=== PATIENT | female | born 1930 | race Caucasian/White ===

== ENCOUNTER 2016-10-25 06:17 | Emergency (ER) | payer MEDICARE, OTHER ==
[2016-10-25 07:02] LABS: Hematocrit 39 % (35-47); Hemoglobin 13.2 g/dl (12.0-16.0); Mean Corpuscular HGB Conc 34 g/dl (31-36); Mean Corpuscular Hemoglobin 33 pg (27-31); Mean Corpuscular Volume 98 fL (80-97); Mean Platelet Volume 10 um3 (7.4-10.4); Red Blood Count 3.97 10^6/ul (4.0-5.4); Red Cell Distribution Width 14 % (10.5-15); White Blood Count 4.9 10^3/ul (3.5-10.8)
[2016-10-25 07:08] LABS: Albumin 3.6 g/dL (3.2-5.2); BUN/Creatinine Ratio 27.6 (8-20); C Reactive Protein 1.94 mg/L (< 5.00); Calcium 9.1 mg/dL (8.6-10.3); EGFR African American 79.2 (>60); EGFR Non-African American 61.6 (>60); Globulin 2.8 g/dL (2-4); Potassium 4.2 mmol/L (3.5-5.0); Total Bilirubin 0.5 mg/dL (0.2-1.0); Total Protein 6.4 g/dL (6.4-8.9)
[2016-10-25 07:26] LABS: Budding Yeast Present (Absent); Urine Bacteria Absent (Absent); Urine Bilirubin Negative (Negative); Urine Glucose Negative (Negative); Urine Nitrite Negative (Negative)
[2016-10-25] MEDS ORDERED: NS 0.9% 1000 ML* 1,000 ML IV ONE (07:53)
[2016-10-25 08:27] VITALS: BP 154/76
--- NOTE | 2016-10-25 18:29 | ED ---
Ming Wright Adam, scribed for Tylor Phillips MD on 10/25/16 at 0804 . Complex/Multi-Sys Presentation - HPI Summary HPI Summary: Pt is an 86 year old female being treated for UTI who suddenly developed abdominal pain this morning. 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 She denies any pain at this time. She has not had a fever but had profound diaphoresis associated with the pain this morning. The daughter also states that the pt was hallucinating this morning, which is very unusual. Upon examination the pt is confused but the daughter states that she is approximately at her baseline. The pt is on her 5th day of Keflex and she had a Olmedo catheter put in this morning because she has been retaining fluid. She is being followed by Dr. Connolly. - History Of Current Complaint Chief Complaint: EDUrogenitalProblems Time Seen by Provider: 10/25/16 07:52 Hx Obtained From: Patient Onset/Duration: Sudden Onset, Lasting Hours, Resolved Timing: Constant Severity Currently: None Severity Initially: Moderate Location: Pain At: - Abdomen Aggravating Factor(s): Nothing Alleviating Factor(s): Spontaneous resolution Associated Signs And Symptoms: Positive: Confusion, Diaphoresis, Other - Hallucinations, urinary retention - Allergies/Home Medications Allergies/Adverse Reactions: Allergies Allergy/AdvReac Type Severity Reaction Status Date / Time Amlodipine [From Norvasc] Allergy Unknown Unknown Verified 10/25/16 06:53 Reaction Details Atorvastatin [From Lipitor] Allergy Unknown Unknown Verified 10/25/16 06:53 Reaction Details Azithromycin [From Zithromax] Allergy Unknown Unknown Verified 10/25/16 06:53 Reaction Details Benazepril [From Lotensin] Allergy Unknown Unknown Verified 10/25/16 06:53 Reaction Details Calcium Channel Blockers Allergy Unknown Unknown Verified 10/25/16 06:53 Reaction Details Cephalexin [From Keflex] Allergy Unknown Unknown Verified 10/25/16 06:53 Reaction Details Erythromycin Allergy Unknown Unknown Verified 10/25/16 06:53 Reaction Details Hydrochlorothiazide Allergy Unknown Unknown Verified 10/25/16 06:53 Reaction Details Metoprolol [From Toprol XL] Allergy Unknown Unknown Verified 10/25/16 06:53 Reaction Details Nadolol [From Corgard] Allergy Unknown Unknown Verified 10/25/16 06:53 Reaction Details Nickel Allergy Unknown Unknown Verified 10/25/16 06:53 Reaction Details Penicillins [PCN] Allergy Unknown Unknown Verified 10/25/16 06:53 Reaction Details Ramipril [From Altace] Allergy Unknown Unknown Verified 10/25/16 06:53 Reaction Details Valsartan [From Diovan] Allergy Unknown Unknown Verified 10/25/16 06:53 Reaction Details apricots Allergy Unknown Unknown Uncoded 02/16/16 14:22 Reaction Details leeks Allergy Unknown Unknown Uncoded 02/16/16 14:22 Reaction Details primrose oil Allergy Unknown Unknown Uncoded 02/16/16 14:22 Reaction Details walnuts Allergy Unknown Unknown Uncoded 02/16/16 14:22 Reaction Details PMH/Surg Hx/FS Hx/Imm Hx Endocrine/Hematology History: Reports: Hx Anticoagulant Therapy - coumadin, Hx Diabetes, Hx Thyroid Disease - hypothyroid Cardiovascular History: Reports: Hx Hypertension, Other Cardiovascular Problems/ Disorders - ATRIAL FIBRILATION Denies: Hx Congestive Heart Failure, Hx Pacemaker/ICD Respiratory History: Denies: Hx Asthma, Hx Chronic Obstructive Pulmonary Disease (COPD) History: Reports: Hx Kidney Stones, Other Problems/Disorders - FREQUENT UTI'S Denies: Hx Renal Disease Musculoskeletal History: Reports: Hx Back Problems - BACK PAIN, Other Musculoskeletal History - CONTRACTURED LEFT ARM AND LEFT LEG WEAKNESS Denies: Hx Arthritis, Hx Osteoporosis Sensory History: Reports: Hx Cataracts - BILATERAL, Hx Contacts or Glasses Denies: Hx Hearing Aid Opthamlomology History: Reports: Hx Cataracts - BILATERAL, Hx Contacts or Glasses Neurological History: Reports: Hx Dementia, Hx Seizures, Hx Transient Ischemic Attacks (TIA) - 6 years ago. 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 Denies: Hx Developmental Delay Psychiatric History: Denies: Hx Panic Disorder, Hx Substance Abuse - Surgical History Surgery Procedure, Year, and Place: CATARACTS; HYSTERECTOMY; VARICOSE VEINS; CARDIAC ABLATION Infectious Disease History: No Infectious Disease History: Denies: Hx Clostridium Difficile, Hx Hepatitis, Hx Human Immunodeficiency Virus (HIV), Hx Shingles, Hx Tuberculosis, Traveled Outside the [place] in Last 30 Days - Family History Known Family History: Positive: Unknown - Pt has dementia - Social History Occupation: Retired Lives: With Family - Daughter Alcohol Use: None Hx Substance Use: No Substance Use Type: Reports: None Hx Tobacco Use: No Smoking Status (MU): Never Smoked Tobacco Review of Systems Positive: Skin Diaphoresis. Negative: Fever, Chills Negative: Erythema Negative: Sore Throat Negative: Chest Pain Negative: Shortness Of Breath, Cough Positive: Abdominal Pain. Negative: Vomiting, Nausea Positive: other - Retaining urine in bladder Negative: Myalgia, Edema Negative: Rash Neurological: Other - Hallucinations, confusion All Other Systems Reviewed And Are Negative: Yes Physical Exam - Summary Physical Exam Summary: Constitutional: Well-developed, Well-nourished, Alert. (-) Distressed Skin: Warm, Dry HENT: Normocephalic; Atraumatic Eyes: Conjunctiva normal Neck: Musculoskeletal ROM normal neck. (-) JVD, (-) Stridor, (-) Tracheal deviation Cardio: Rhythm regular, rate normal, Heart sounds normal; Intact distal pulses; The pedal pulses are 2+ and symmetric. Radial pulses are 2+ and symmetric. (-) Murmur Pulmonary/Chest wall: Effort normal. (-) Respiratory distress, (-) Wheezes, (-) Rales Abd: Soft, (-) Tenderness, (-) Distension, (-) Guarding, (-) Rebound Musculoskeletal: (-) Edema Lymph: (-) Cervical adenopathy Neuro: Alert, Oriented x3 Psych: Mood and affect Normal Triage Information Reviewed: Yes Vital Signs On Initial Exam: Initial Vitals BP 158/67 10/25/16 06:30 Vital Signs Reviewed: Yes - [place] Coma Scale Coma Scale Total: 14 Diagnostics - Vital Signs Vital Signs Temp Pulse Resp BP Pulse Ox 10/25/16 07:34 80 159/62 95 10/25/16 07:30 81 143/64 95 10/25/16 07:00 71 140/61 96 10/25/16 06:50 99.2 F 77 18 158/67 95 10/25/16 06:49 94 10/25/16 06:30 158/67 - Laboratory Lab Results: Lab Results 10/25/16 10/25/16 10/25/16 Range/Units 06:33 06:33 06:33 WBC 4.9 (3.5-10.8) 10^3/ul RBC 3.97 L (4.0-5.4) 10^6/ul Hgb 13.2 (12.0-16.0) g/dl Hct 39 (35-47) % MCV 98 H (80-97) fL MCH 33 H (27-31) pg MCHC 34 (31-36) g/dl RDW 14 (10.5-15) % Plt Count 174 (150-450) 10^3/ul MPV 10 (7.4-10.4) um3 Neut % (Auto) 47.4 (38-83) % Lymph % (Auto) 38.2 (25-47) % [place] % (Auto) 6.0 (1-9) % Eos % (Auto) 6.5 H (0-6) % Baso % (Auto) 1.9 (0-2) % Absolute Neuts (auto) 2.3 (1.5-7.7) 10^3/ul Absolute Lymphs (auto) 1.9 (1.0-4.8) 10^3/ul Absolute Monos (auto) 0.3 (0-0.8) 10^3/ul Absolute Eos (auto) 0.3 (0-0.6) 10^3/ul Absolute Basos (auto) 0.1 (0-0.2) 10^3/ul Absolute Nucleated RBC 0 10^3/ul Nucleated RBC % 0 INR (Anticoag Therapy) 1.06 (0.89-1.11) APTT 41.6 H (26.0-36.3) seconds Sodium 138 (133-145) mmol/L Potassium 4.2 (3.5-5.0) mmol/L Chloride 103 (101-111) mmol/L Carbon Dioxide 28 (22-32) mmol/L Anion Gap 7 (2-11) mmol/L BUN 24 (6-24) mg/dL Creatinine 0.87 (0.51-0.95) mg/dL Est GFR ( Amer) 79.2 (>60) Est GFR (Non-Af Amer) 61.6 (>60) BUN/Creatinine Ratio 27.6 H (8-20) Glucose 125 H (70-100) mg/dL Lactic Acid (0.5-2.0) mmol/L Calcium 9.1 (8.6-10.3) mg/dL Total Bilirubin 0.50 (0.2-1.0) mg/dL AST 9 L (13-39) U/L ALT 7 (7-52) U/L Alkaline Phosphatase 65 (34-104) U/L C-Reactive Protein 1.94 (< 5.00) mg/L Total Protein 6.4 (6.4-8.9) g/dL Albumin 3.6 (3.2-5.2) g/dL Globulin 2.8 (2-4) g/dL Albumin/Globulin Ratio 1.3 (1-3) Urine Color Urine Appearance Urine pH (5-9) Ur Specific [place] (1.010-1.030) Urine Protein (Negative) Urine Ketones (Negative) Urine Blood (Negative) Urine Nitrate (Negative) Urine Bilirubin (Negative) Urine Urobilinogen (Negative) Ur Leukocyte Esterase (Negative) Urine WBC (Auto) (Absent) Urine RBC (Auto) (Absent) Urine Bacteria (Absent) Urine Yeast (Absent) Urine Glucose (Negative) 10/25/16 10/25/16 Range/Units 06:33 06:45 WBC (3.5-10.8) 10^3/ul RBC (4.0-5.4) 10^6/ul Hgb (12.0-16.0) g/dl Hct (35-47) % MCV (80-97) fL MCH (27-31) pg MCHC (31-36) g/dl RDW (10.5-15) % Plt Count (150-450) 10^3/ul MPV (7.4-10.4) um3 Neut % (Auto) (38-83) % Lymph % (Auto) (25-47) % [place] % (Auto) (1-9) % Eos % (Auto) (0-6) % Baso % (Auto) (0-2) % Absolute Neuts (auto) (1.5-7.7) 10^3/ul Absolute Lymphs (auto) (1.0-4.8) 10^3/ul Absolute Monos (auto) (0-0.8) 10^3/ul Absolute Eos (auto) (0-0.6) 10^3/ul Absolute Basos (auto) (0-0.2) 10^3/ul Absolute Nucleated RBC 10^3/ul Nucleated RBC % INR (Anticoag Therapy) (0.89-1.11) APTT (26.0-36.3) seconds Sodium (133-145) mmol/L Potassium (3.5-5.0) mmol/L Chloride (101-111) mmol/L Carbon Dioxide (22-32) mmol/L Anion Gap (2-11) mmol/L BUN (6-24) mg/dL Creatinine (0.51-0.95) mg/dL Est GFR ( Amer) (>60) Est GFR (Non-Af Amer) (>60) BUN/Creatinine Ratio (8-20) Glucose (70-100) mg/dL Lactic Acid 0.9 (0.5-2.0) mmol/L Calcium (8.6-10.3) mg/dL Total Bilirubin (0.2-1.0) mg/dL AST (13-39) U/L ALT (7-52) U/L Alkaline Phosphatase (34-104) U/L C-Reactive Protein (< 5.00) mg/L Total Protein (6.4-8.9) g/dL Albumin (3.2-5.2) g/dL Globulin (2-4) g/dL Albumin/Globulin Ratio (1-3) Urine Color Yellow Urine Appearance Clear Urine pH 6.0 (5-9) Ur Specific [place] 1.013 (1.010-1.030) Urine Protein Negative (Negative) Urine Ketones Negative (Negative) Urine Blood 1+ H (Negative) Urine Nitrate Negative (Negative) Urine Bilirubin Negative (Negative) Urine Urobilinogen Negative (Negative) Ur Leukocyte Esterase 2+ H (Negative) Urine WBC (Auto) 3+(>20/hpf) H (Absent) Urine RBC (Auto) 1+(3-5/hpf) H (Absent) Urine Bacteria Absent (Absent) Urine Yeast Present H (Absent) Urine Glucose Negative (Negative) Result Diagrams: 10/25/16 06:33 10/25/16 06:33 Lab Statement: Any lab studies that have been ordered have been reviewed, and results considered in the medical decision making process. Complex Multi-Symp Course/Dx - Diagnoses Provider Diagnoses: UTI (urinary tract infection), Urinary retention Discharge - Discharge Plan Condition: Stable Disposition: HOME Prescriptions: Cephalexin CAP* [Keflex CAP*] 500 mg PO QID #40 cap Patient Education Materials: Urinary Tract Infection in Women (ED), Acute Urinary Retention in Women (ED) Referrals: Heber Connolly MD [Medical Doctor] - Additional Instructions: Follow up with Dr. Connolly (Urology). Return to the ED in the event of any fevers or worsening symptoms. The documentation as recorded by the Ming ring Adam accurately reflects the service I personally performed and the decisions made by , Tylor Phillips MD.
== END 2016-10-25 08:57 | disposition home or self-care (01) ==
LOC: ED 06:17
DX: N39.0 Urinary tract infection, site not specified (principal); R33.9 Retention of urine, unspecified
CPT/HCPCS: 36415; 80053; 81003; 81015; 83605; 85025; 85610; 85730; 86140; 87086; 99284

== ENCOUNTER 2017-02-17 10:23 | Observation (INO) | payer MEDICARE, OTHER ==
--- NOTE | 2017-02-17 11:43 | RAD ---
Indication: Chest pain. History of CVA. New neurologic deficits today with interval. Comparison: June 07, 2016 CT abdomen. February 16, 2016 chest radiograph. Technique: Upright AP 1125 hours Report: Cardiomegaly. Unremarkable central pulmonary vasculature. Mild prominence and rarefaction of the interstitial markings. Mild linear atelectasis versus pleural parenchymal scarring at the medial LEFT lower lung zone. No alveolar consolidation concerning for pneumonia, suspicious focal pulmonary lesion, pleural effusion, pneumothorax. IMPRESSION: Cardiomegaly which appears increased over the 2016 exam. No compelling evidence for pulmonary edema or other acute intrathoracic process.
[2017-02-17 12:05] LABS: Hematocrit 44 % (35-47); Hemoglobin 14.6 g/dl (12.0-16.0); Mean Corpuscular HGB Conc 33 g/dl (31-36); Mean Corpuscular Hemoglobin 33 pg (27-31); Mean Corpuscular Volume 99 fL (80-97); Mean Platelet Volume 10 um3 (7.4-10.4); Red Blood Count 4.45 10^6/ul (4.0-5.4); Red Cell Distribution Width 15 % (10.5-15); White Blood Count 7.2 10^3/ul (3.5-10.8)
--- NOTE | 2017-02-17 12:10 | RAD ---
Indication: Altered mental status. New RIGHT side weakness and facial droop. Previous CVA. Comparison: June 07, 2016 CT. Technique: Noncontrast and contrast enhanced CT vertex of skull through foramen magnum. Report: Extensive RIGHT middle cerebral artery distribution encephalomalacia without change. Moderate prominence of the cerebral sulci and cerebellar fissures. Decreased density in the periventricular and subcortical white matter while non-specific is most likely due to chronic microangiopathy. No new region of foster matter white matter obscuration, intra or extra-axial hemorrhage, or mass effect. Chronic calcification of the basal ganglia. Unremarkable ventricles and basal cisterns. No suspicious calvarial or skull base lesions evident. Clear visualized paranasal sinuses and mastoid air spaces. IMPRESSION: 1. Chronic severe encephalomalacia reflecting previous RIGHT middle cerebral artery distribution infarct. 2. Atrophy and stigmata of chronic small vessel ischemic change. 3. No acute intracranial process evident.
[2017-02-17 12:21] LABS: ALT 14 U/L (7-52); Albumin 3.9 g/dL (3.2-5.2); Alkaline Phosphatase 71 U/L (34-104); BUN/Creatinine Ratio 27.9 (8-20); Blood Urea Nitrogen 19 mg/dL (6-24); CO2 Carbon Dioxide 24 mmol/L (22-32); Calcium 9.2 mg/dL (8.6-10.3); Chloride 100 mmol/L (101-111); EGFR Non-African American 81.7 (>60); Glucose 177 mg/dL (70-100); Sodium 130 mmol/L (133-145); Total Protein 6.9 g/dL (6.4-8.9)
[2017-02-17 12:24] LABS: Troponin I 0.02 ng/mL (<0.04)
[2017-02-17 12:37] LABS: Urine Bacteria 1+ (Absent); Urine Bilirubin Negative (Negative); Urine Glucose 1+(50 mg/dL) (Negative); Urine Nitrite Positive (Negative)
[2017-02-17 12:44] LABS: Anion Gap 6 mmol/L (2-11)
[2017-02-17] MEDS ORDERED: Dextrose 50% Syringe 50 ML* 25 GM/50 ML SYRINGE IV PUSH PRN (13:07)
[2017-02-17 15:05] LABS: TSH (Thyroid Stimulating Horm) 0.54 mcIU/mL (0.34-5.60)
[2017-02-17] MEDS: NS 0.9% 1000 ML* 1,000 ML IV SCH (18:05)
--- NOTE | 2017-02-17 18:58 | ED ---
Lydia Wright Edward, scribed for Yovany Mcbride MD on 02/17/17 at 1044 . Neurological HPI - HPI Summary HPI Summary: 87 y/o female presents to the ED c/o diaphoresis, R sided weakness, bilateral facial drooping (R side is new, L side chronic), and slurred speech at 05:00 this morning. Last seen normal was before the pt went to bed last night at 19: 30. Pt woke up with these sx. Per daughter, pt also c/o nausea. Associated sx: L sided CP described as a "funny feeling", SOB. Pt lives with her daughter. PMHx CVA 8 years ago, seizures. Most information is provided by the patient's daughters. The new deficits are slightly improved, per daughter. - History of Current Complaint Chief Complaint: EDNeurologicalDeficit Stated Complaint: SLURRED SPEACH,RT SIDE FACIAL CHANGES Hx Obtained From: Patient Hx Last Menstrual Period: N/A Onset/Duration: Started hours ago - 05:00 this morning Neurological Deficit Location: Generalized - R side acute, L side chronic, Facial - R side acute, L side chronic Pain Intensity: 0 Associated Signs and Symptoms: Positive: Weakness - General and facial, Impaired Speech, Nausea/Vomiting, Diaphoresis, Chest Pain, Shortness of Breath - Additional Pertinent History Primary Care Physician: [id number] - Allergy/Home Medications Allergies/Adverse Reactions: Allergies Allergy/AdvReac Type Severity Reaction Status Date / Time Penicillins [PCN] Allergy Severe Anaphylatic Verified 02/17/17 14:08 Shock Amlodipine [From Norvasc] Allergy Unknown Unknown Verified 10/25/16 06:53 Reaction Details Atorvastatin [From Lipitor] Allergy Unknown Unknown Verified 10/25/16 06:53 Reaction Details Azithromycin [From Zithromax] Allergy Unknown Unknown Verified 10/25/16 06:53 Reaction Details Benazepril [From Lotensin] Allergy Unknown Unknown Verified 10/25/16 06:53 Reaction Details Calcium Channel Blockers Allergy Unknown Unknown Verified 10/25/16 06:53 Reaction Details Cephalexin [From Keflex] Allergy Unknown Unknown Verified 10/25/16 06:53 Reaction Details Erythromycin Allergy Unknown Unknown Verified 10/25/16 06:53 Reaction Details Hydrochlorothiazide Allergy Unknown Unknown Verified 10/25/16 06:53 Reaction Details Nadolol [From Corgard] Allergy Unknown Unknown Verified 10/25/16 06:53 Reaction Details Nickel Allergy Unknown Unknown Verified 10/25/16 06:53 Reaction Details Ramipril [From Altace] Allergy Unknown Unknown Verified 10/25/16 06:53 Reaction Details Valsartan [From Diovan] Allergy Unknown Unknown Verified 10/25/16 06:53 Reaction Details apricots Allergy Unknown Unknown Uncoded 02/16/16 14:22 Reaction Details leeks Allergy Unknown Unknown Uncoded 02/16/16 14:22 Reaction Details primrose oil Allergy Unknown Unknown Uncoded 02/16/16 14:22 Reaction Details walnuts Allergy Unknown Unknown Uncoded 02/16/16 14:22 Reaction Details Home Medications: Home Medications Lamotrigine [Lamotrigine ER] 50 mg PO BID 02/17/17 [History Confirmed 02/17/17] Metoprolol Succinate XL TAB* [Toprol XL TAB*] 12.5 mg PO BID 02/17/17 [History Confirmed 02/17/17] PMH/Surg Hx/FS Hx/Imm Hx Previously Healthy: No Endocrine/Hematology History: Reports: Hx Anticoagulant Therapy - coumadin, Hx Diabetes, Hx Thyroid Disease - hypothyroid Cardiovascular History: Reports: Hx Hypertension, Other Cardiovascular Problems/ Disorders - ATRIAL FIBRILATION Denies: Hx Congestive Heart Failure, Hx Pacemaker/ICD Respiratory History: Denies: Hx Asthma, Hx Chronic Obstructive Pulmonary Disease (COPD) History: Reports: Hx Kidney Stones, Other Problems/Disorders - FREQUENT UTI'S Denies: Hx Renal Disease Musculoskeletal History: Reports: Hx Back Problems - BACK PAIN, Other Musculoskeletal History - CONTRACTURED LEFT ARM AND LEFT LEG WEAKNESS Denies: Hx Arthritis, Hx Osteoporosis Sensory History: Reports: Hx Cataracts - BILATERAL, Hx Contacts or Glasses Denies: Hx Hearing Aid Opthamlomology History: Reports: Hx Cataracts - BILATERAL, Hx Contacts or Glasses Neurological History: Reports: Hx Dementia, Hx Seizures, Hx Transient Ischemic Attacks (TIA) - 6 years ago. 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 Denies: Hx Developmental Delay Psychiatric History: Denies: Hx Panic Disorder, Hx Substance Abuse - Surgical History Surgery Procedure, Year, and Place: CATARACTS; HYSTERECTOMY; VARICOSE VEINS; CARDIAC ABLATION Infectious Disease History: Denies: Hx Clostridium Difficile, Hx Hepatitis, Hx Human Immunodeficiency Virus (HIV), Hx Shingles, Hx Tuberculosis, Traveled Outside the [place] in Last 30 Days - Social History Alcohol Use: None Hx Substance Use: No Substance Use Type: Reports: None Hx Tobacco Use: No Smoking Status (MU): Never Smoked Tobacco Review of Systems Constitutional: Negative Eyes: Negative ENT: Negative Positive: Chest Pain Positive: Shortness Of Breath Positive: Nausea Genitourinary: Negative Musculoskeletal: Negative Skin: Negative Positive: Weakness - R side acute, L side chronic. In face and extremities Psychological: Normal All Other Systems Reviewed And Are Negative: Yes Physical Exam Triage Information Reviewed: Yes Vital Signs On Initial Exam: Initial Vitals Temp Pulse Resp BP Pulse Ox 98.5 F 92 20 176/93 97 02/17/17 10:29 02/17/17 10:29 02/17/17 10:29 02/17/17 10:29 02/17/17 10:29 Vital Signs Reviewed: Yes Appearance: Positive: No Pain Distress Skin: Positive: Skin Color Reflects Adequate Perfusion Head/Face: Positive: Normal Head/Face Inspection Eyes: Positive: EOMI Neck: Positive: Supple Respiratory/Lung Sounds: Positive: Clear to Auscultation, Breath Sounds Present Cardiovascular: Positive: RRR. Negative: Murmur Abdomen Description: Positive: Nontender Musculoskeletal: Positive: Strength/ROM Intact Neurological: Positive: Speech Normal. Negative: Slurred Speech Diagnostics - Vital Signs Vital Signs Temp Pulse Resp BP Pulse Ox 02/17/17 10:29 98.5 F 92 20 176/93 97 - Laboratory Result Diagrams: 02/17/17 11:45 02/17/17 13:49 Lab Statement: Any lab studies that have been ordered have been reviewed, and results considered in the medical decision making process. - Radiology CXR Xray Interpretation: Positive (See Comments) - Cardiomegaly which appears increased over the 2016 exam. No compelling evidence for pulmonary edema or other acute intrathoracic process. Radiology Interpretation Completed By: Radiologist - CT BRAIN CT CT Interpretation: No Acute Changes - 1. Chronic severe encephalomalacia reflecting previous RIGHT middle cerebral artery distribution infarct. 2. Atrophy and stigmata of chronic small vessel ischemic change. 3. No acute intracranial process evident. CT Interpretation Completed By: Radiologist - EKG 1 EKG Interpretation: 11:01 - AFIB @ 79 BPM. NO STEMI Course/Dx - Course Course Of Treatment: 87 yr old female with TIA symptoms and also Chest pain. Admit hospitalist - Diagnoses Provider Diagnoses: Chest pain, TIA (transient ischemic attack) Discharge - Discharge Plan Condition: Good Disposition: ADMITTED TO [facility] The documentation as recorded by the Lydia ring Edward accurately reflects the service I personally performed and the decisions made by me, Yovany Mcbride MD.
[2017-02-17] MEDS: Insulin LISPRO* 1 UNITS UNIT SUBCUT SCH (19:13)
--- NOTE | 2017-02-17 19:30 | RAD ---
INDICATION: TIA. COMPARISON: Comparison is made with a prior carotid duplex ultrasound from September 29, 2012. TECHNIQUE: Multiple grayscale, color and Doppler tracings of the common, internal and external carotid and vertebral arteries were obtained. Stenosis estimations reflect velocity criteria that it been correlated to angiographic stenosis calculations based on the distal internal carotid diameter. RIGHT CAROTID: There is mild plaque within the right carotid bulb and proximal internal carotid artery. The peak systolic velocity in the proximal right internal carotid artery is 55 cm/s and the maximum end-diastolic velocity is 9 cm/s. The peak systolic velocity in the distal right common carotid artery is 60 cm/s and the maximum end-diastolic velocity is 11 cm/s. The internal to common carotid artery ratio is 0.9. This would be consistent with a less than 50% stenosis. LEFT CAROTID: There is mild plaque within the left carotid bulb. The peak systolic velocity in the proximal left internal carotid artery is 55 cm/s and the maximum end-diastolic velocity is 9 cm/s. The peak systolic velocity in the distal left common carotid artery is 58 cm/s and the maximum end-diastolic velocity is 16 cm/s. The internal to common carotid artery ratio is 0.9. This would be consistent with a less than 50% stenosis. VERTEBRALS: The vertebral arteries were not visualized due to the patient's position and the patient's limited range of motion. IMPRESSION: 1. THERE IS MILD PLAQUE PRESENT WITHIN THE CAROTID BULBS AND PROXIMAL INTERNAL CAROTID ARTERIES. NO HEMODYNAMICALLY SIGNIFICANT STENOSIS IS PRESENT. THERE IS NO SIGNIFICANT CHANGE FROM THE PRIOR STUDY. 2. THE VERTEBRAL ARTERIES WERE NOT VISUALIZED NOTED ABOVE. CPT II Codes: 3100F
[2017-02-17] MEDS ORDERED: LAMOTRIGINE 50 MG PO SCH (21:00)
[2017-02-17] MEDS: Metoprolol Succinate XL TAB* 25 MG PO SCH (21:15)
[2017-02-17] MEDS: CMC:Dabigatran CAP(NF) 150 MG CAP PO SCH (21:15)
--- NOTE | 2017-02-17 22:46 | CONS ---
CONSULTATION REPORT: DATE OF ADMISSION/CONSULT: 02/17/17 LOCATION: She is currently in room 449, bed 1. REASON FOR CONSULTATION: Right-sided drooping. HISTORY OF PRESENT ILLNESS: Ms. 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 It should be noted that the patient is a poor historian. I attempted to contact her daughter several times with the number listed in chart and was unable to reach her. I did speak with the admitting physician. Apparently, the patient came into the ER after the daughter noticed some generalized weakness. She could not sit up, but also noticed possible right- sided weakness and right facial droop. Apparently, she was last seen normal at 7:30 p.m. and then was found this way at 4 or 5 in the morning. Subsequently, she returned back to her baseline. She does have a history of seizure activity, was admitted back in January 2016. At that time, had fallen and was found to have what appeared to be a postictal state, some focal type seizure activity in the emergency room. At that time, a CT of the head showed no new areas of abnormality, although she did have the area of encephalo- malacia noted. It was also noted at that time that she had 3 to 4 seizures. She was seen by Dr. Dumont. Apparently, had been tried on Keppra, but it caused somnolence, so she was put on Lamictal then and it is unclear to me if she has had any additional seizures since that time. I have ordered a Lamictal level, but do not have one at this time. She also has a history of atrial fibrillation. The patient was kept on Pradaxa at the time of her last admission despite the fall as the fall was noted to be atypical for her. There has been no reported falling recently. There has been no report of any seizure- like activity today, although she was last normal last night and was found this way in the morning. Currently, she denies any problems, although she is a very poor historian. She denies any headache, shortness of breath, dyspnea on exertion, chest pain. It is unclear whether she had any bladder or bowel incontinence at the time she was found. At this point, that is all the information that I have. She did have a brain CT done today, which shows chronic evidence of encephalomalacia reflecting previous right middle cerebral artery distribution infarct, atrophy, and stigmata of chronic small vessel ischemic change. No acute intracranial process evident. I did review the films as well and agree. Chest x-ray today showed cardiomegaly, which seems increased over the 2016 exam. No compelling evidence for pulmonary edema or other intrathoracic process. PAST MEDICAL HISTORY: Her past medical history is noted above. In addition, she has a history of kidney stones, diabetes, hypertension, hypothyroidism per her previous workup. ALLERGIES: She is allergic to number of medications including AMLODIPINE, AZITHROMYCIN, ATORVASTATIN, BENAZEPRIL, CALCIUM-CHANNEL ASHELIGH, CEPHALEXIN, ERYTHROMYCIN, HYDROCHLOROTHIAZIDE, METOPROLOL, NADOLOL, NICKEL, PENICILLIN, RAMIPRIL, VALSARTAN, APRICOTS, LEEKS, PRIMROSE OIL, and WALNUTS. FAMILY HISTORY: Unknown at this time, but prior workup revealed mother with heart problems. Father with colon cancer. Brother with colon cancer as well as a sister with a stroke. SOCIAL HISTORY: Unavailable, although review of previous records showed she was a nonsmoker and did not drink alcohol. Lives with her daughter. REVIEW OF SYSTEMS: Review of systems in 14 organ systems could not be completed because of her mental status. She denies any health issues at this time and is very unclear while she is here. PHYSICAL EXAMINATION: Vital Signs: 184/93 to 161/69, pulse is in the 60s, respiratory rate 13, pulse ox 97% to 99%. She is breathing about 12 to 16 a minute. General: She is a well-nourished, well-developed female, lying in her hospital bed, slightly lying to the left. She is awake, answers some questions , but is very confused. HEENT: She is normocephalic/atraumatic. Sclerae are anicteric. Mucous membranes are moist. Oropharynx is clear. Nares are patent. Neck is supple. No thyromegaly. No carotid bruits. Chest: Clear to auscultation bilaterally. Cardiovascular: Irregularly irregular. Abdomen is nontender. Extremities: Her left upper and lower extremities are cool. Left greater than right lower extremity edema, 2+ on the left, 1+ on the right. Neurologic Exam: She is awake, alert. She is oriented to person only. Did not know where she was, the date, year, day of the week. Her speech is fluent with some mild dysarthria present. She does not repeat. Her visual patiño are difficult to assess, but she does blink to confrontation. She follows my finger to the right more difficult following my finger to the left in both eyes. There is no obvious extraocular muscle abnormality. Pupils are equal, round, and reactive to light. Her facial sensation is difficult to assess. She is noncompliant. She does have a left lower facial droop, right side appears normal in strength. Hearing is grossly intact to finger rub. Tongue appears midline. Oropharynx is symmetric. Shoulder shrug and head turn were difficult to perform. Motor Exam: She has dense hemiparesis of the left upper extremity with some flexion, spasticity noted. The left lower extremity has minimal movement at the hip, otherwise no movement. Tone is increased in the left lower extremity proximally and distally. On the right side, she follows commands and is able to lift her leg and her arm antigravity with no significant drift, I would rate 4+/5 bilaterally. DTRs 1+ and symmetric on the right side, trace in the left upper extremity biceps and brachioradialis, trace at the left patella, 1+ at the right patella. She has upgoing Babinski on the left, equivocal on the right. Sensation: She does note pain in the lower extremities bilaterally as well as the upper extremities. She does withdraw on the right, but more detailed examination was difficult. Gait cannot be tested. LABORATORY DATA: Lab work includes white count of 7.2, hemoglobin of 14.6, hematocrit of 44. INR of 1.07. Chemistry: Sodium 130, chloride of 100, BUN and creatinine ratio of 27.9, glucose of 177, hemoglobin A1c is 7.7, lactic acid of 1.1. Troponin of 0.02, 0.03, and 0.03. TSH is 0.54. Urine shows positive nitrite, 1+ blood, 3+ leukocyte esterase, 3+ white blood cells, 1+ bacteria. Imaging as noted above. ASSESSMENT AND PLAN: Ms. Tabor is an 87-year-old female with a history of a right MCA stroke with result left hemiparesis as well as atrial fibrillation and history of seizure disorder, now on Lamictal, who was found this morning with what appeared to be right-sided weakness per her admitting physician. I attempted to contact the daughter, who is unavailable for further clarification , but we will continue to try. The weakness on the right side has apparently resolved although she continues to have chronic left-sided weakness. She appears to be confused and per review of her prior records, appears to be more confused than was previously noted in 2016 although she does have note of dementia in her chart. At this point, the differential for her presenting symptoms include a seizure. Her event apparently happened sometime during the night and she was found that way and Jarvis paralysis is certainly a possibility. A new stroke or transient ischemic attack is also a possibility. For seizure , I am going to check a Lamictal level. I am not going to make any changes to her medications at this point. We will watch closely for seizure activity. Transient ischemic attack or stroke is a possibility. Given her history with atrial fibrillation, I am going to get an MRI of her brain without contrast as well as carotid and echo to rule out any source for stroke. Apparently until this point, she was functional and living with her daughter. She does have urinary tract infection, which could cause some delirium, possibly some focal signs on examination although I would expect more left-sided findings than right -sided findings given her history of prior stroke. My plan will be to follow up her studies, watch her closely with neuro checks. I deferred treatment of her urinary tract infection to her primary doctor. I will continue to follow her closely and make further recommendations if necessary. Thank you for the opportunity to participate in her care. [id number]/[facility] #: [id number] TOMAS
[2017-02-17] MEDS: lamoTRIgine TAB(*) 25 MG PO SCH (23:50)
--- NOTE | 2017-02-18 00:35 | HP ---
CC: Dr. Olivier Goldstein * HISTORY AND PHYSICAL: DATE OF ADMISSION: 02/17/17 PRIMARY CARE PROVIDER: Dr. Olivier Goldstein. ATTENDING PHYSICIAN: Yoli Cole MD * (dictated by Glenda Farfan NP). CHIEF COMPLAINT: Diaphoresis, new right facial droop and right-sided weakness. HISTORY OF PRESENT ILLNESS: Ms. Tabor is an 87-year-old female with past medical history significant for atrial fibrillation, diabetes mellitus, hypertension, hypothyroidism, seizure disorder status post cerebrovascular accident with resulting left-sided hemiparesis, who according to her daughter was at her normal state of health around 7:30 last night when she went to bed. Please note that the patient was unable to give her own history and her history was obtained from two of her daughters. The daughter reports that when she woke up with the patient this morning at approximately 5:30 a.m., the patient was noted to be diaphoretic and complaining of nausea. The patient was also just generally complaining of not feeling well. She was noted to have slurred speech. She felt that the patient felt warm to the touch and noted that when she has tried to sit her up on the side of the bed to empty her urinary catheter bag that she was unable to really sit up and just seemed generally weak. At that point, the daughter noticed a new right-sided facial droop. It is to note that the patient at baseline has a left-sided facial droop and it was felt that due to the patient being unable to sit up that she had a right- sided weakness. She also attempted to give her mother a couple of sips of justa molly and noted that she was having difficulty swallowing. The daughter also reports that the patient was pale but by the time she got to the emergency room that had resolved. Per the daughter, she also believes that the patient bit her lips. The patient's daughter denies any recent fever, chills, complaints of shortness of breath from her mother, cough. She does report that she was belching a lot last night at bedtime and that her urine has been foul smelling for a couple of weeks. She follows with Dr. Glasgow who stated that the patient's urine was colonized in that he did not want her placed on antibiotics unless she developed a fever. EMS was called and the patient was brought to the emergency room for further evaluation of her symptoms. While in the emergency room, it is unclear whether or not the patient had chest pain. The patient herself denies any complaints of chest pain, although the patient's daughter reports that the patient was complaining of some chest discomfort and shortness of breath that could have been related to her evening meal and was in fact indigestion. The patient had a chest x-ray showing cardiomegaly. She had an EKG showing a controlled atrial fibrillation with a rate of 79. She had labs drawn, they were fairly unremarkable. She appeared to be a little on the dehydrated side. The patient's right-sided weakness seemed to resolve and most of the patient's right facial droop also appeared to be resolved. She had a head CT showing a chronic severe encephalomalacia reflecting a previous right MCA distributed infarct and atrophy and stigmata of chronic small vessel ischemia. There were no acute changes noted. The patient had an initial troponin of 0.02. The hospitalists were asked to evaluate the patient for admission. PAST MEDICAL HISTORY: 1. Atrial fibrillation. 2. Diabetes mellitus. 3. Hypertension. 4. Hypothyroidism. 5. Seizure disorder. 6. 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 PAST SURGICAL HISTORY: 1. Status post cardiac ablation. 2. Status post laparoscopic cholecystectomy. 3. Status post ORIF left femur. 4. Status post ureteral stenting. 5. Status post vein stripping. HOME MEDICATIONS: Include: 1. Lamictal ER 50 mg oral twice daily. 2. Metoprolol succinate ER 12.5 mg b.i.d. 3. Pradaxa 150 mg oral twice daily. 4. Digoxin 125 mcg oral daily. 5. Metformin 500 mg oral twice daily. 6. Levothyroxine 25 mcg oral daily. ALLERGIES: 1. PENICILLIN causes anaphylactic shocks. 2. AMLODIPINE. 3. ATORVASTATIN. 4. AZITHROMYCIN. 5. BENAZEPRIL. 6. CALCIUM CHANNEL BLOCKERS. 7. KEFLEX. 8. ERYTHROMYCIN. 9. HYDROCHLOROTHIAZIDE. 10. NADOLOL. 11. NICKEL. 12. VERAPAMIL. 13. VALSARTAN. 14. APRICOTS. 15. LEEKS. 16. PRIMROSE. 17. WALNUTS. 18. CASHEWS. FAMILY HISTORY: The patient has a family history of mother who passed in her older age, had a myocardial infarction when she was older. The patient had an maternal aunt with a history of diabetes mellitus. The patient's father has a history of colon cancer and he has brother with a history of colon cancer. SOCIAL HISTORY: The patient's family denies any tobacco, alcohol, or recreational drug use. She lives with her one daughter. The patient's daughters Idalmis and Faina will be her surrogate decision makers in the event she is unable to make decisions for herself. REVIEW OF SYSTEMS: I performed a 14-point review of systems. All the pertinent positives and negatives are mentioned in the history of present illness. The remaining review of systems are negative. PHYSICAL EXAMINATION GENERAL APPEARANCE: The patient is alert, pleasant and appears to be in no acute distress. VITAL SIGNS: Temperature 98.4, heart rate 71, respiratory rate 20, O2 sat 97% on 2 L via nasal cannula, blood pressure 165/93. HEENT: Normocephalic, atraumatic. Pupils are equal and reactive to light. Extraocular movements are intact. RESPIRATORY: There is no accessory muscle use and the lungs are clear to auscultation bilateral. CARDIOVASCULAR: Regular rate and rhythm. S1 and S2 present. There is no murmurs, rubs or gallops heard. ABDOMEN: Soft, nontender and nondistended. There are bowel sounds present x4. EXTREMITIES: There is no lower extremity edema. DP and PT pulses are 2+ and symmetric. MUSCULOSKELETAL: There is no clubbing or cyanosis noted. The patient exhibits good strength in her right extremity. She has a left-sided hemiparesis. The patient is able to dorsi and plantar flex on the right. She has a good strong right hand sediment remediation consultant. NEUROLOGICAL: The patient is alert. Unable to determine orientation as at this time she will only shake her head yes and no, and is not answering questions. The patient has no pronator drift on the right side. As far as her facial drooping, she has a baseline left-sided facial drooping and slight right - sided facial droop noted. PSYCHOLOGICAL: The patient is calm and cooperative. SKIN: There are no rashes or abnormalities noted. DIAGNOSTIC STUDIES/LABORATORY DATA: Sodium 130, potassium 4.4, chloride 100, CO2 24, BUN 19, creatinine 0.68, glucose 177. White blood cell count 7.2, hemoglobin 14.6, hematocrit 44 and platelet count 153,000. Troponin 0.02. EKG shows an atrial fibrillation and a rate of 79. There is no acute signs of ischemia. This EKG is similar to previous EKG from 06/07/16. 1. Chest x-ray from today. Radiologist impression: Cardiomegaly, which appears increased over the 2016 exam. No compelling evidence for pulmonary edema or other acute intrathoracic process. 2. Brain CT from today. Radiologist impression: Chronic severe encephalomalacia reflecting previous right middle cerebral artery distribution infarct. Atrophy and stigmata of chronic small vessel ischemic changes. No acute intracranial process evident. ASSESSMENT AND PLAN: Ms. Tabor is an 87-year-old female with past medical history significant for atrial fibrillation, diabetes mellitus, hypertension, hypothyroidism, seizure disorder and previous MCA cerebrovascular accident with residual left-sided hemiparesis, who presents to the emergency room with new onset right-sided weakness and possible chest discomfort. She will be admitted as an observation for chest pain, rule out acute coronary syndrome and right hemiparesis. 1. Chest pain, rule out acute coronary syndrome. The patient will be monitored on telemetry. We will trend her troponins. It is unclear whether or not the patient was actually having chest pain. We will check fasting lipids in the morning. We will hold off on a stress test at this time. 2. Right-sided hemiparesis that has resolved. The patient will be monitored on telemetry. We will get neurological checks q.4 hours. We will check fasting lipid level in the morning in addition to get a hemoglobin A1c. I have asked Dr. Phelps with Neurology to see the patient in consultation. Again, the patient's right- sided hemiparesis has resolved at this time, although she still continues to have slight right facial drooping that is new. 3. Diabetes mellitus. We will hold the patient's home metformin. We will place her on fingersticks a.c. and h.s. We will place her on a lispro sliding scale coverage with meals. We will also check her hemoglobin A1c. 4. Hypothyroidism. We will check the patient's TSH and continue her on her home levothyroxine. 5. Atrial fibrillation. The patient is currently rate controlled. We will continue on her home metoprolol and digoxin and Pradaxa. 6. Chronic indwelling Olmedo catheter. The patient's urine looks dirty, it was collected from the urinary bag. I did discuss the UA findings with Dr. Glasgow who states that unless she becomes febrile he would not treat her for urinary tract infection as he does not want to create drug resistance and feels that she is colonized due to her Olmedo catheter. He did note though that the patient did have bilateral renal calculi the last time he did a scan on her. 7. Seizure disorder. The patient will be continued on her home Lamictal. We will check a Lamictal level. 8. Hypertension. The patient has been slightly hypertensive with systolic blood pressures up into the 180s. For now, we will allow the patient to be on the hypertensive side to allow for permissive hypertension while we rule out a new cerebrovascular accident. 9. Fluids, electrolytes and nutrition. Due to the patient's family reporting that she was having difficulty swallowing, we will make her n.p.o. and if she is able to pass bedside dysphagia screening, we will give her a consistent carbohydrate diet. 10. Code status. Do not resuscitate. 11. DVT prophylaxis. The patient is at high risk and will be continued on her home Pradaxa. 12. Disposition. Observation. TIME SPENT: Time for this admission was approximately 75 minutes; greater than half of that was spent with the patient and daughters discussing medications, past medical history, and the events leading up to her arrival today and performing a physical examination. The case has been reviewed with the attending, Dr. Cole, who agrees with the plan of care. Reviewed by JACINTO TYLER 02/19/17 1215 [id number]/[facility] #: [id number] TOMAS
[2017-02-18 05:12] LABS: Hematocrit 41 % (35-47); Hemoglobin 13.4 g/dl (12.0-16.0); Mean Corpuscular HGB Conc 33 g/dl (31-36); Mean Corpuscular Hemoglobin 33 pg (27-31); Mean Corpuscular Volume 99 fL (80-97); Mean Platelet Volume 10 um3 (7.4-10.4); Red Cell Distribution Width 15 % (10.5-15); White Blood Count 5.7 10^3/ul (3.5-10.8)
[2017-02-18 05:33] LABS: BUN/Creatinine Ratio 26.5 (8-20); Calcium 8.6 mg/dL (8.6-10.3); EGFR Non-African American 81.7 (>60); HDL Cholesterol 52.7 mg/dL; Potassium 3.6 mmol/L (3.5-5.0)
[2017-02-18] MEDS ORDERED: Levothyroxine TAB* 25 MCG TAB PO SCH (06:00)
[2017-02-18] MEDS: NS 0.9% 1000 ML* 1,000 ML IV SCH (08:16)
[2017-02-18] MEDS ORDERED: Digoxin TAB* 0.125 MG PO SCH (09:00)
[2017-02-18] MEDS ORDERED: Metoprolol Succinate XL TAB* 25 MG PO SCH (09:00)
[2017-02-18] MEDS: Metoprolol Succinate XL TAB* 25 MG PO SCH (09:02)
[2017-02-18] MEDS: CMC:Dabigatran CAP(NF) 150 MG CAP PO SCH (09:03)
[2017-02-18] MEDS: lamoTRIgine TAB(*) 25 MG PO SCH ×2 (09:08→13:56)
[2017-02-18] MEDS: Insulin LISPRO* 1 UNITS UNIT SUBCUT SCH ×2 (09:09→13:55)
--- NOTE | 2017-02-18 13:04 | ECHO ---
Patient: ROMEO SANTOS [facility] Rec#: [id number] : 1930 Date: 02/18/2017 Age: 87y Height: 157.48 cm / 62.0 in Weight: 83.91 kg / 184.9 lbs Sex: F BSA: 1.85 Room#: [facility] Admit Date#: 02/17/2017 Type: Inpatient Referring: Ruel Phelps Reading: Andres Greene MD Gravel Hauler: Glenda George RDCS CC: Olivier Goldstein MD Transthoracic Echocardiogram Indication: TIA BP: 149/67 HR: 77 Rhythm: A-Fib Findings History: Prior CVA, DM, A-fib, HTN, hypothyroidism, seizures. Technical Comments: The study quality is fair. The study is technically limited due to poor apical windows. Completed at 1130. Left Ventricle: The left ventricular chamber size is normal. Mild concentric left ventricular hypertrophy is observed. Global left ventricular wall motion and contractility are within normal limits. There is normal left ventricular systolic function. The estimated ejection fraction is 55-60%. Visually estimated LVEF is 60 %. The assessment of diastolic function is non-diagnostic. Left Atrium: The left atrium is moderately dilated. Right Ventricle: Moderator Band present. The right ventricular cavity size is normal. The right ventricular global systolic function is normal. Right Atrium: The right atrium is moderately dilated. Aortic Valve: The aortic valve is trileaflet. The aortic valve leaflets are mildly thickened. There is a trace of aortic regurgitation. There is no evidence of aortic stenosis. Mitral Valve: There is mitral annular calcification. The mitral valve leaflets are mildly thickened. There is mild mitral regurgitation. There is no evidence of mitral stenosis. Tricuspid Valve: The tricuspid valve leaflets are normal. There is mild tricuspid regurgitation. The right ventricular systolic pressure is estimated at 39 mmHg. There is evidence of mild pulmonary hypertension. There is no tricuspid stenosis. Pulmonic Valve: The pulmonic valve appears normal. There is mild pulmonic regurgitation. There is no pulmonic stenosis. Pericardium: A trivial pericardial effusion is visualized. The pericardial effusion is seen adjacent to the left ventricle. A pericardial fat pad is visualized. Aorta: There is mild dilatation of the ascending aorta. The aortic arch is not well visualized. There is no dilation of the aortic root. Pulmonary Artery: The main pulmonary artery appears normal. Venous: The inferior vena cava is dilated. There is less than 50% respiratory change in the inferior vena cava dimension. Conclusions Mild concentric left ventricular hypertrophy is observed. There is normal left ventricular systolic function. Visually estimated LVEF is 60 %. Moderate left and right atrial enlargement is noted. No significant valvular disease: There is a trace of aortic regurgitation. There is mild mitral regurgitation. There is mild tricuspid regurgitation. There is evidence of mild pulmonary hypertension. There is mild pulmonic regurgitation. A trivial pericardial effusion is visualized without hemodynamic compromise. Compared to report of prior study from 09/29/2012there are no significant changes. The patient is noted to be in atrial fibrillation. Measurements Name Value Normal Range RVIDd (AP) 2D 2.4 cm (0.9 - 2.6) RVDdMajor (2D) 2.1 cm (2.2 - 4.4) RVAW (2D) 0.5 cm (0.2 - 0.5) RAd ISD 4CH 5.9 cm (3.4 - 4.9) RA (A4C)W 4.1 cm (2.9 - 4.6) IVSd (2D) 1.2 cm (0.6 - 1) LVPWd (2D) 1.2 cm (0.6 - 1) LVIDd (2D) 4.7 cm (3.6 - 5.4) LVIDs (2D) 3.3 cm - LV FS (2D) 29 % (25 - 45) Aortic Annulus 1.9 cm (1.4 - 2.6) Ao root diameter (2D) 3.2 cm (2.1 - 3.5) Ascending Ao 3.5 cm (2.1 - 3.4) LA dimension (AP) 2D 3.7 cm (2.3 - 3.8) LAd ISD 4CH 6.1 cm (2.9 - 5.3) LA ISD 4CH W 4.4 cm (2.5 - 4.5) Name Value Normal Range LA ESV SP 4CH (A/L) 61 ml - LA ESV SP 2CH (A/L) 41 ml - LA ESV BP (A/L) 53 ml - LA ESV BP (A/L) index 28.8 ml/m2 - LA ESV SP 4CH (MOD) 56 ml - LA ESV SP 2CH (MOD) 41 ml - Name Value Normal Range MV E-wave Vmax 0.98 m/sec - MV deceleration time 178.5 msec - LV septal e' Vmax 0.08 m/sec - LV lateral e' Vmax 0.07 m/sec - LV E:e' septal ratio 12.25 ratio - LV E:e' lateral ratio 14 ratio - Name Value Normal Range AV Vmax 1.21 m/sec - AV VTI 24.54 cm - AV peak gradient 5.85 mmHg - AV mean gradient 3.59 mmHg - LVOT Vmax 0.67 m/sec - LVOT VTI 14.37 cm - LVOT peak gradient 1.8 mmHg - LVOT mean gradient 0.9 mmHg - Name Value Normal Range TR Vmax 2.2 m/sec - TR peak gradient 19 mmHg - RAP 20 mmHg - RVSP 39 mmHg - IVC diameter 2.7 cm - Name Value Normal Range PV Vmax 0.87 m/sec - PV peak gradient 3.08 mmHg - WV end-diastolic Vmax 0.94 m/sec -
--- NOTE | 2017-02-18 14:37 | PN ---
Progress Note - Progress Note Date of Service: 02/18/17 Note: Additional information: I spoke with both daughters who do not want the MRI done. They have an Easy-Stand device at home to help with transfers if she cannot stand and pivot. The daughter is familiar with how the patient's seizures present.
[2017-02-18 14:42] VITALS: BP 143/48
--- NOTE | 2017-02-18 17:06 | PN ---
PROGRESS NOTE: DATE OF PROGRESS NOTE: 02/18/17 LOCATION: 449, bed 1. SUBJECTIVE: I had a chance to review additional records this morning. Last night, I attempted to contact family in the ED several times, but was unable to. Per her admission records, the patient woke up at around 05:30 a.m. yesterday and was noted to be diaphoretic and complaining of nausea. She was also not feeling well, noted to have slurred speech. 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 She was unable to sit up and also concerned that there was some general weakness and right facial droop. She was also having some difficulty swallowing. The daughter yesterday denied any recent fevers, chills , complaints of shortness of breath from her mother, cough, but that she had a lot of belching and that her urine was foul smelling. There was some competing evidence regarding chest pain, the patient denied any, but the daughter states that she may have had some chest pain. EKG showed atrial fib. There was not any strong evidence for any coronary event. MRI was attempted last night, but she was unable to sit still because of her confusion. Overnight, she improved. This morning, she is much better sitting up, more awake and alert. She remains confused. She is unclear why she is here, although when I asked her what brought her to the hospital, she states that her "catheter got clogged." She states that it has happened in the past. There has been no new issues overnight. No seizure activity reported. OBJECTIVE: Vital Signs: Temperature 97.3, pulse rate of 73, respiratory rate 18 , pulse ox 97%, blood pressure 149/67 to 154/75 to 147/54. In general, she is a well-nourished, well-developed female. She is lying in her hospital bed at approximately 45 degrees. She is pleasant this morning, more talkative. HEENT : She is normocephalic/atraumatic. Sclerae are anicteric. Mucous membranes are slightly dry. Neck: Supple. No carotid bruits. Chest: Clear to auscultation bilaterally. Cardiovascular: Irregularly irregular. Abdomen: Nondistended. Extremities: There is 2+ dependent edema in the left lower extremity, 1+ in the right lower extremity. Neurologic Exam: She is awake, alert. She is oriented to person. She is not oriented to place or time. Cranial nerves: Pupils are equally round and reactive. Visual patiño are full to confrontation. Extraocular muscles are intact. Her face shows a mild left facial droop. There is no evidence of right facial droop this morning. Sensation is intact bilaterally. Her tongue is midline. Her oropharynx and palate are symmetric. Motor exam: She is moving her right side spontaneously, generally 4+/5 proximally and distally in the right upper and lower extremities. The left side, she has dense hemiparesis in the left upper extremity with some minimal movement at the shoulder. Left lower extremity is dense as well with very minimal movement at the hip. Sensation she states is intact to pain and light touch in all extremities. She does withdraw on the right. She does not withdraw on the left, but her toes did move with pain, she grimaces as well. DTRs were absent in the lower extremities, trace in the upper extremities bilaterally symmetric. Bviuck-gf-cmjh on the right was intact. No tremors were noted. LABORATORY DATA: Lab work this morning, CBC with diff was essentially normal. Basic metabolic panel, glucose of 137, otherwise normal. Her glucose has ranged from 125 to 134 to 148. LDL of 78. Lamictal level pending. Carotid Doppler showed no evidence of significant atherosclerotic disease. Vertebrals were not visualized. MRI was aborted as the patient was moving too much. ASSESSMENT AND PLAN: Ms. Tabor is an 87-year-old female who has a history of coronary artery disease, status post stroke several years ago with right MCA stroke with resultant left hemiparesis, which has been stable. She also has a history of possible seizure disorder, has been followed by Dr. Dumont, who was previously on Keppra, most recently on Lamictal. There has been no seizure activity reported, although she was found yesterday with some right facial droop , possibly some right- sided weakness, although the daughter reports generalized weakness as well. Concern was transient ischemic attack versus possible seizure with some Jarvis paralysis. We will attempt an MRI again today. I will continue her Lamictal and followup a level. Continue her Pradaxa unchanged, her metoprolol unchanged. Her LDL cholesterol is good. I would not start a statin at this point. Overall, she does appear to be better. It appears that she has some under-lying dementia as well. It is unclear whether she is back to baseline, but she is much improved from yesterday. I will follow up her studies. Continue to follow her closely. [id number]/[facility] #: [id number] TOMAS
--- NOTE | 2017-02-19 02:38 | DS ---
CC: Dr. Goldstein; Dr. Dumont * DISCHARGE SUMMARY: DATE OF ADMISSION: DATE OF DISCHARGE: 02/18/17 HOSPITAL COURSE: This 87-year-old woman presented with a right facial droop and right-sided weakness. She has a history of a right middle cerebral artery stroke number of years ago with residual dense left hemiparesis. The patient was in a normal state of health the night before the day of admission. When the patient woke up on the morning of admission, she was diaphoretic and complaining of nausea. She had slurred speech. She had a new right-sided facial droop. Sometime during the day yesterday after arriving here , the patient improved; however, she had little more confusion than normal probably from a delirium. The patient was evaluated here with CT scan of the brain, carotid Doppler study , and transthoracic echocardiogram. The echo showed normal left ventricular ejection fraction and atrial enlargement. The carotid Doppler study showed mild plaque in the carotid bulbs and internal carotid arteries with no hemodynamically significant stenosis. Vertebral arteries were not visualized. CT scan of the brain showed severe encephalomalacia in the right middle cerebral artery distribution. Lamotrigine level was sent off and the results are pending at this time. Routine lab work was unremarkable. Vital signs were good. Urine culture showed mixed jair. She remained afebrile throughout the hospital stay. She was given some intravenous fluids with no specific therapy. Her metformin was withheld during the hospital stay, but will be resumed on discharge. Her dabigatran and other meds were continued as at home. FINAL DIAGNOSES: 1. Transient ischemic attack. 2. 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 3. Diabetes. 4. Hypothyroidism. 5. Seizure disorder. DISCHARGE MEDICATIONS: 1. Dabigatran 150 mg b.i.d. 2. Metformin 500 mg b.i.d. 3. Levothyroxine 25 mcg daily. 4. Digoxin 0.125 mg daily. 5. Metoprolol 12.5 mg b.i.d. 6. Lamotrigine 50 mg b.i.d. [id number]/[facility] #: [id number] MTDD
== END 2017-02-18 15:04 | disposition home or self-care (01) ==
LOC: ED 10:23 → MEDTELE 11:55
PROVIDERS: ADMIT Internal Medicine; ATTEND Internal Medicine
DX: G45.9 Transient cerebral ischemic attack, unspecified (principal); I69.854 Hemiplegia and hemiparesis following other cerebrovascular disease affecting left non-dominant side; R07.9 Chest pain, unspecified; E11.9 Type 2 diabetes mellitus without complications; Z79.84 Long term (current) use of oral hypoglycemic drugs; Z79.899 Other long term (current) drug therapy; E03.9 Hypothyroidism, unspecified; R56.9 Unspecified convulsions; R61 Generalized hyperhidrosis; I67.82 Cerebral ischemia; G93.89 Other specified disorders of brain; I48.91 Unspecified atrial fibrillation; Z79.01 Long term (current) use of anticoagulants; I10 Essential (primary) hypertension
CPT/HCPCS: 36415; 70450; 71010; 80048; 80053; 80061; 80175; 81003; 81015; 83036; 83605; 84443; 84484; 85025; 85610; 87086; 93005; 93306; 93880; 99283; A9270-GY; G0378

== ENCOUNTER 2017-07-30 16:00 | Inpatient (IN) | payer MEDICARE, OTHER ==
[2017-07-30] MEDS ORDERED: Ondansetron INJ* 2 MG/ML VIAL ONE (16:28)
[2017-07-30] MEDS ORDERED: NS 0.9% 1000 ML* 1,000 ML IV ONE (16:34)
[2017-07-30] MEDS ORDERED: Ondansetron INJ* 2 MG/ML VIAL IV ONE ×2 (16:35→18:35)
[2017-07-30 17:14] LABS: ABS Basophils 0 10^3/ul (0-0.2); ABS Eosinophils 0 10^3/ul (0-0.6); ABS Lymphocytes 0.7 10^3/ul (1.0-4.8); ABS Monocytes 0.3 10^3/ul (0-0.8); ABS Neutrophils 8.4 10^3/ul (1.5-7.7); ABS Nucleated RBC 0 10^3/ul; Eosinophil % 0.4 % (0-6); Hematocrit 38 % (35-47); Hemoglobin 12.8 g/dl (12.0-16.0); Lymphocyte % 7.3 % (25-47); Mean Corpuscular HGB Conc 34 g/dl (31-36); Mean Corpuscular Hemoglobin 33 pg (27-31); Mean Corpuscular Volume 98 fL (80-97); Mean Platelet Volume 9 um3 (7.4-10.4); Nucleated Red Blood Cells % 0; Platelet Count 199 10^3/ul (150-450); Red Cell Distribution Width 14 % (10.5-15); White Blood Count 9.5 10^3/ul (3.5-10.8)
[2017-07-30 17:31] LABS: INR 1.4 (0.77-1.02)
[2017-07-30 17:37] LABS: EGFR Non-African American 113.8 (>60)
[2017-07-30 19:43] LABS: Urine Appearance Clear; Urine Blood 1+ (Negative); Urine Color Yellow; Urine Ketones 1+ (Negative); Urine Protein Negative (Negative); Urine Specific Gravity 1.011 (1.010-1.030); Urine Urobilinogen Negative (Negative)
[2017-07-30] MEDS ORDERED: Calcium Gluconate INJ* 3 GM in NS 0.9% 250 ML* 250 ML IVPB ONE (20:12)
[2017-07-30] MEDS ORDERED: Magnesium Sulfate IV* 3 GM in NS 0.9% 100 ML* 100 ML IVPB ONE (20:12)
[2017-07-30] MEDS ORDERED: Cefepime(*) 1 GM in NS 0.9% 50 ML* 50 ML IVPB ONE (20:13)
[2017-07-30] MEDS ORDERED: Morphine INJ* 2 MG/ML 1 ML CARPUJECT IV PRN (20:14)
[2017-07-30] MEDS ORDERED: Ondansetron INJ* 2 MG/ML VIAL IV PRN (20:14)
[2017-07-30] MEDS ORDERED: Dextrose 50% Syringe 50 ML* 25 GM/50 ML SYRINGE IV PUSH PRN (20:20)
[2017-07-30] MEDS ORDERED: Meropenem 1 GM PREMIX(*) 1 GM/50 ML BAG IV ONE (20:29)
[2017-07-30] MEDS ORDERED: Cefepime 1 GM in Dextrose(*) 1 GM/50 ML BAG IV ONE (21:00)
--- NOTE | 2017-07-30 21:03 | RAD ---
INDICATION: Seizure. COMPARISON: There are no prior studies available for comparison. TECHNIQUE: Contiguous axial sections of the brain were obtained from the skull base to the vertex without contrast. The exam is limited due to motion artifact. FINDINGS: The ventricles, cisterns and sulci are enlarged consistent with diffuse atrophy. There is a large area of encephalomalacia present in the right frontal temporal and parietal lobes. There are other areas of decreased attenuation in the subcortical and periventricular white matter most consistent with chronic small vessel ischemic changes. Note is made of calcifications within the lentiform nuclei. No other focal abnormality or mass effect is seen. There is no evidence for hemorrhage. No significant focal osseous abnormality is seen. The visualized portion of the paranasal sinuses and mastoid air cells appear clear. IMPRESSION: LIMITED STUDY, LARGE AREA OF ENCEPHALOMALACIA INVOLVING THE RIGHT FRONTAL PARIETAL AND TEMPORAL LOBES. NO EVIDENCE FOR ACUTE FINDING.
[2017-07-30] MEDS ORDERED: NS 0.9% 1000 ML* 1,000 ML IV SCH (21:15)
--- NOTE | 2017-07-30 21:21 | RAD ---
INDICATION: Abdominal pain. COMPARISON: There are no prior studies available for comparison. TECHNIQUE: Frontal supine films of the abdomen were obtained. FINDINGS: The small bowel and colon appear nondistended. There is a moderate amount of stool within the rectosigmoid colon. There are calcifications which project over the left renal region possibly representing renal calculi. IMPRESSION: NO EVIDENCE FOR OBSTRUCTION.
--- NOTE | 2017-07-30 21:23 | RAD ---
INDICATION: Shortness of breath. COMPARISON: There are no prior studies available for comparison. TECHNIQUE: AP and lateral views of the chest were obtained. The exam is limited. The patient's arms project over the chest on the lateral view. FINDINGS: The heart appears mildly enlarged. There is an electronic device that projects over the cardiac region. The lungs are clear. No pleural effusion is present. IMPRESSION: NO EVIDENCE FOR ACTIVE CARDIOPULMONARY DISEASE.
[2017-07-30] MEDS: lamoTRIgine TAB(*) 100 MG PO SCH (23:27)
--- NOTE | 2017-07-31 01:01 | HP ---
CC: Olivier Goldstein MD * HISTORY AND PHYSICAL: DATE OF ADMISSION: 07/30/17 TIME OF EVALUATION: 1999. PRIMARY CARE PHYSICIAN: Olivier Goldstein MD CHIEF COMPLAINT: Seizure activity with cardiac issues. HISTORY OF PRESENT ILLNESS: This is an 87-year-old female with a past medical history of seizure disorder, history of stroke and xota-bd-evqourgf dementia, who presents to the emergency room via EMS after having a prolonged seizure. The daughters are at the bedside, who provides a history. They states that she has seizures about once every 6 to 9 months that has seemed to increase over the past year, but she has a hard time tolerating anti-seizure medications in a low dose, which seems to work for her. This evening, she woke up and complained of a significant headache, which is unusual for her and she went back to bed, she got back up. The daughters states around 1:30, they were getting her to sit at the table to eat, she began eating some cereal and that is when she began having seizure with her eyes rolling back, jerking, stiffness , abnormal breathing, this lasted for about 7 minutes. It took her about 15 minutes for even she started moving. They called the neurologist on-call who said to call the EMS. When EMS arrived, they noted that she had what was appeared to be a 30-second pause and then her heart rate was down to the 20s. During this, the patient had an episode of nausea and vomiting and there was a concern of a possible vasovagal episode. The family states since April, she has been complaining of abdominal pain with nausea and decreased appetite. She has had normal bowel movement and it is hard to tell if she has lost any weight. Normally, she is wheelchair bound and she has 24- hour care at home. They states she has an indwelling Olmedo because she has urinary retention with recurrent urinary tract infections. They deny any fevers. No upper respiratory symptoms. Last week, she seemed to be short of breath. They deny any choking episodes with eating. No chest pain or diarrhea. She just finished a 10- day course of ciprofloxacin for a recent urinary tract infection that started on the . Otherwise, no changes in her medications. The patient is awake, but alert and oriented x1 and unable to obtain an adequate review of systems. In the emergency room, the patient had labs. She was given 8 mg of Zofran and 1 L of normal saline and was referred to the hospitalist service for further evaluation. PAST MEDICAL HISTORY: 1. Hypothyroidism. 2. History of seizure disorder, followed by Dr. Dumont. 3. Diabetes. 4. Atrial fibrillation, on anticoagulation. 5. Hypertension. 6. History of CVA with left-sided hemiparesis. 7. History of indwelling Olmedo. 8. Dementia, mild to moderate. PAST SURGICAL HISTORY: 1. Status post cardiac ablation. 2. Status post laparoscopic cholecystectomy. 3. Status post ORIF of the left femur. 4. Status post ureteral stenting. 5. Status post vein stripping. MEDICATIONS: 1. Metoprolol ER 12.5 mg p.o. b.i.d. 2. Synthroid 25 mcg p.o. daily. 3. Digoxin 125 mcg q.a.m. 4. Lamotrigine ER 50 mg p.o. b.i.d. 5. Pradaxa 150 mg p.o. b.i.d. 6. Lasix 20 mg q.a.m. 7. Metformin 500 mg p.o. b.i.d. ALLERGIES: PENICILLIN anaphylaxis, AMLODIPINE, ATORVASTATIN, AZITHROMYCIN, BENAZEPRIL, CALCIUM CHANNEL BLOCKERS, KEFLEX, ERYTHROMYCIN, HYDROCHLOROTHIAZIDE , NADOLOL, NICKEL, RAMIPRIL, VALSARTAN, CASHEW NUT OIL, APRICOTS, LEEKS, PRIMROSE OIL, and WALNUTS. FAMILY HISTORY: Unable to obtain. SOCIAL HISTORY: The patient lives with her daughter, Jacquie. She gets 24-hour care. She is wheelchair bound. No tobacco. Rare alcohol use. She is a DNR/ DNI. They state they have a MOLST form that has been completed. The healthcare proxy is the daughter, Idalmis, phone number [phone]. Jacquie who is the daughter that she lives with [phone]. REVIEW OF SYSTEMS: Unable to obtain. PHYSICAL EXAMINATION GENERAL: No acute distress, resting comfortably, does not wake to voice. VITAL SIGNS: Temp 97, pulse rate 76, respiratory rate 13, oxygen saturation 94 % on 2 L, blood pressure 144/88. HEENT: Head: Normocephalic. Pupils equal and reactive, anicteric. Oropharynx : Mucous membranes dry. She has dry blood around her mouth and on her lower lip. NECK: Supple. No lymphadenopathy. RESPIRATORY: Diminished breath sounds. No wheezes, rhonchi, or rales. CARDIAC: Irregularly irregular rate and rhythm. Soft systolic murmur heard throughout. ABDOMEN: Hypoactive bowel sounds, soft, some mild distention and some mild diffuse tenderness. No rebound or guarding. EXTREMITIES: +1 pretibial edema. +1 DPs. NEUROLOGIC: Alert and oriented x1. Oriented to self only. She does have a left- sided mild facial droop and left-sided 1/5 strength upper and lower, which is her baseline. LABORATORY DATA: White count 9.5, hemoglobin 12.8, hematocrit 38, platelets 199. INR is 1.4. Sodium 139, potassium 4.3, chloride 112, bicarb 19, BUN 18, creatinine 0.5, glucose 177, lactic acid 3.1, calcium 5.8, magnesium 1.3. Troponin 0.01. Albumin is 2.4. TSH is 0.38. Urine shows positive nitrites, blood, ketones, leuks. Digoxin is 0.7. RADIOGRAPHIC DATA: EKG shows atrial fibrillation. ASSESSMENT AND PLAN: This is an 87-year-old female with a past medical history of seizure disorder and cerebrovascular accident with left-sided hemiparesis, who presents to the emergency room after having prolonged seizure and found to have bradycardia and pauses. 1. Seizure with associated bradycardia and pauses. Assessment: The patient is on low-doses of lamotrigine. The family is hesitant to titrate this as they feel every other antiepileptic medication makes her somnolent. The etiology behind her seizures could be electrolyte disorder, she has hypomagnesemia and hypocalcemia. Her urine shows that she does have pyuria, but this could be colonized due to her indwelling Olmedo. She does not have a white count. Other possibilities is stroke. She also may have issues with absorption with her abdominal pain and some nausea and decrease in appetite. Plan: We will admit her to the ICU for tonight. Seizure precautions. We will put her back on her lamotrigine if she passes her swallow evaluation. We are going to treat her empirically for her urinary tract infection and followup on cultures. We will replete her calcium and mag, trend her troponin. We will get a head CT and abdominal film. If the abdominal film is abnormal, pursue further workup with a CAT scan. The family does not want aggressive measures. We discussed stopping her metoprolol and her digoxin to avoid more pauses and bradycardia. If that persists, would they be interested in pacemaker, the family did not want her to have a pacemaker. Consider followup with Neurology in the morning. 2. Chronic medical problems: Hypertension as mentioned. Holding her metoprolol and digoxin in the setting of her bradycardia. 3. Hypothyroidism. Resume her Synthroid to 25 mcg. 4. Seizure disorder. As mentioned above, we will resume her lamotrigine and check a level. 5. Atrial fibrillation, on anticoagulation. The patient with seizure and concern for fall. We will check a head CT, was complaining of a headache earlier. Hold the Pradaxa for now. The patient may not be a candidate for anticoagulation in the setting of frequent seizures, subtherapeutic, on antiepileptics. 5. Diabetes. We will place her on lispro sliding scale and a diet when she passes her swallow eval. 6. Low albumin. We will check a prealbumin and could be the patient has protein- calorie malnutrition in the setting of her symptoms of abdominal discomfort. We will check a prealbumin and get a Nutrition consult. 7. DVT prophylaxis. The patient is on Pradaxa. We will hold this and start her on her heparin subcu t.i.d. in the morning and followup on risks versus benefits of resuming her Pradaxa. 8. Code status. Family confirms she is a DNR/DNI. PATIENT TIME: Greater than 70 minutes was spent doing the history and physical and critical care time with her bradycardia and her seizures and discussing goals of care, more than half of that time spent in direct patient contact. [id number]/[facility] #: [id number] TOMAS
[2017-07-31] MEDS ORDERED: Heparin VIAL(*) 5000 UNITS/ML VIAL (FIVE THOUSAND) SUBCUT SCH (06:00)
[2017-07-31 06:26] LABS: ABS Basophils 0.1 10^3/ul (0-0.2); ABS Eosinophils 0.1 10^3/ul (0-0.6); ABS Lymphocytes 1.4 10^3/ul (1.0-4.8); ABS Monocytes 0.4 10^3/ul (0-0.8); ABS Neutrophils 4.7 10^3/ul (1.5-7.7); ABS Nucleated RBC 0 10^3/ul; Eosinophil % 1.7 % (0-6); Hematocrit 39 % (35-47); Hemoglobin 13.1 g/dl (12.0-16.0); Lymphocyte % 21.4 % (25-47); Mean Corpuscular HGB Conc 33 g/dl (31-36); Mean Corpuscular Hemoglobin 33 pg (27-31); Mean Corpuscular Volume 99 fL (80-97); Mean Platelet Volume 9 um3 (7.4-10.4); Nucleated Red Blood Cells % 0.1; Platelet Count 220 10^3/ul (150-450); Red Blood Count 3.99 10^6/ul (4.0-5.4); Red Cell Distribution Width 14 % (10.5-15); White Blood Count 6.7 10^3/ul (3.5-10.8)
[2017-07-31] MEDS: Levothyroxine TAB* 25 MCG TAB PO SCH (06:29)
[2017-07-31 06:46] LABS: EGFR Non-African American 72.9 (>60)
[2017-07-31] MEDS ORDERED: Cefepime(*) 1 GM in NS 0.9% 50 ML* 50 ML IVPB SCH (08:00)
[2017-07-31] MEDS: lamoTRIgine TAB(*) 100 MG PO SCH ×2 (09:45→20:36)
[2017-07-31] MEDS: Insulin LISPRO* 1 UNITS UNIT SUBCUT SCH ×4 (10:08→17:47)
--- NOTE | 2017-07-31 11:09 | PN ---
Subjective Date of Service: 07/31/17 Interval History: Was retching yesterday after seizure. This aM no complaints. Ate her breakfast with no problems. Denies abd pain Objective Active Medications: Dextrose (D50w Syringe 50 Ml*) 12.5 gm IV PUSH .FOR FS < 60 - SS PRN PRN Reason: FS < 60 Heparin Sodium (Porcine) (Heparin Vial(*)) 5,000 units SUBCUT Q8HR [facility] Last Admin: 07/31/17 06:29 Dose: 5,000 units Sodium Chloride (Ns 0.9% 1000 Ml*) 1,000 mls @ 100 mls/hr IV PER RATE [facility] Insulin Human Lispro (Humalog*) 0 units SUBCUT AC [facility] PRN Reason: Protocol Last Admin: 07/31/17 10:08 Dose: 2 units Lamotrigine (Lamictal Tab(*)) 50 mg PO BID [facility] Last Admin: 07/31/17 09:45 Dose: 50 mg Levothyroxine Sodium (Synthroid Tab*) 25 mcg PO DAILY@0600 [facility] Last Admin: 07/31/17 06:29 Dose: 25 mcg Morphine Sulfate (Morphine Inj (Syringe)*) 2 mg IV Q4H PRN PRN Reason: PAIN Ondansetron HCl (Zofran Inj*) 4 mg IV Q4H PRN PRN Reason: NAUSEA/VOMITING Vital Signs - 8 hr 07/31/17 07/31/17 07/31/17 03:16 03:30 03:45 Temperature Pulse Rate 80 60 61 Respiratory 17 15 14 Rate Blood Pressure 144/58 120/51 126/54 (mmHg) O2 Sat by Pulse 90 93 92 Oximetry 07/31/17 07/31/17 07/31/17 04:00 04:15 04:31 Temperature 97.1 F Pulse Rate 64 63 58 Respiratory 15 16 21 Rate Blood Pressure 124/57 144/48 120/55 (mmHg) O2 Sat by Pulse 92 93 93 Oximetry 07/31/17 07/31/17 07/31/17 04:45 05:00 05:16 Temperature Pulse Rate 61 63 74 Respiratory 17 15 16 Rate Blood Pressure 132/57 128/57 143/68 (mmHg) O2 Sat by Pulse 93 93 92 Oximetry 07/31/17 07/31/17 07/31/17 05:30 05:45 06:00 Temperature Pulse Rate 65 67 66 Respiratory 14 15 19 Rate Blood Pressure 123/53 126/49 (mmHg) O2 Sat by Pulse 92 92 92 Oximetry 07/31/17 07/31/17 07/31/17 06:15 06:30 06:45 Temperature Pulse Rate 65 72 78 Respiratory 18 19 19 Rate Blood Pressure 148/63 149/69 156/84 (mmHg) O2 Sat by Pulse 95 94 91 Oximetry 07/31/17 07/31/17 07/31/17 07:00 07:15 07:30 Temperature Pulse Rate 72 80 72 Respiratory 22 21 12 Rate Blood Pressure 150/71 175/67 149/69 (mmHg) O2 Sat by Pulse 92 91 94 Oximetry 07/31/17 07/31/17 07/31/17 07:45 08:00 08:01 Temperature 99.3 F Pulse Rate 75 66 61 Respiratory 19 14 13 Rate Blood Pressure 164/65 147/49 (mmHg) O2 Sat by Pulse 92 93 94 Oximetry 07/31/17 07/31/17 07/31/17 08:16 08:30 08:45 Temperature Pulse Rate 61 61 65 Respiratory 14 15 15 Rate Blood Pressure 135/53 148/61 152/62 (mmHg) O2 Sat by Pulse 96 96 97 Oximetry 07/31/17 07/31/17 07/31/17 09:00 09:15 09:30 Temperature Pulse Rate 61 65 67 Respiratory 13 13 15 Rate Blood Pressure 140/51 140/45 137/44 (mmHg) O2 Sat by Pulse 94 94 94 Oximetry 07/31/17 07/31/17 07/31/17 10:00 10:15 10:30 Temperature Pulse Rate 82 78 66 Respiratory 15 26 14 Rate Blood Pressure 137/67 142/59 148/56 (mmHg) O2 Sat by Pulse 86 95 95 Oximetry Oxygen Devices in Use Now: None Appearance: 87 yo F in nAD, oriented x 2 very poor historian Eyes: No Scleral Icterus, PERRLA Ears/Nose/Mouth/Throat: NL Teeth, Lips, Gums, Mucous Membranes Moist Neck: NL Appearance and Movements; NL JVP, Trachea Midline Respiratory: Symmetrical Chest Expansion and Respiratory Effort Cardiovascular: NL Sounds; No Murmurs; No JVD, - - irregular Abdominal: NL Sounds; No Tenderness; No Distention, No Hepatosplenomegaly Lymphatic: No Cervical Adenopathy Extremities: No Clubbing, Cyanosis, - - trace pedal edema b/l Skin: No Rash or Ulcers, No Nodules or Sclerosis Neurological: - - left arm contracted, left leg at 4/5, speech clear-baseline Result Diagrams: 07/31/17 06:10 07/31/17 06:10 Assess/Plan/Problems-Billing Assessment: Mrs. Tabor is an 82yo F with PMH of Atrial fibrilation on Pradaxa, CVA with residual left hemiparesis, HTN, type 2 DM, frequent UTIs, seizure disorder, dementia admitted after a prolonged seizure and sinus pauses when retching post seizure: - Patient Problems (1) Seizure disorder Comment: Per daughter seizures started in 2014, last seizure 8 mos ago. Not tolerating increase in anti-seizure medications due to lethargy and family requests no titartion of lamictal. (2) UTI (urinary tract infection) Comment: Olmedo associated, acute Was on Ceftin one week ago cont Ceftriaxone, awaiting cx. (3) Afib Comment: rate controlled, cont pradaxa. holding BB and digoxin due to sinus pauses, although they were likley associated to increased vagal tone when retching. (4) Diabetes Comment: cont ISS (5) Electrolyte abnormality Comment: hypocalcemia and hypomagnesemia-replaced (6) DVT prophylaxis Comment: pradaxa Status and Disposition: inpatient. Has 24/ care at home. D/c planned for tomorrow
[2017-07-31] MEDS: DABIGATRAN 150 MG PO SCH (20:36)
[2017-08-01] MEDS ORDERED: hydrALAZINE IV* 20 MG/ML VIAL ONE (03:50)
[2017-08-01] MEDS ORDERED: hydrALAZINE IV* 20 MG/ML VIAL IV SLOW PU PRN (04:22)
[2017-08-01] MEDS ORDERED: Metoprolol Tartrate IV* 1 MG/ML 5 ML VIAL IV ONE (04:38)
[2017-08-01] MEDS ORDERED: Metoprolol Tartrate IV* 1 MG/ML 5 ML VIAL ONE (04:50)
[2017-08-01] MEDS: Levothyroxine TAB* 25 MCG TAB PO SCH (05:54)
[2017-08-01 07:01] LABS: Hematocrit 40 % (35-47); Hemoglobin 13.5 g/dl (12.0-16.0); Mean Corpuscular HGB Conc 34 g/dl (31-36); Mean Corpuscular Hemoglobin 33 pg (27-31); Mean Corpuscular Volume 97 fL (80-97); Mean Platelet Volume 9 um3 (7.4-10.4); Platelet Count 218 10^3/ul (150-450); Red Blood Count 4.07 10^6/ul (4.0-5.4); Red Cell Distribution Width 14 % (10.5-15); White Blood Count 6.2 10^3/ul (3.5-10.8)
[2017-08-01 07:21] LABS: EGFR Non-African American 70.7 (>60)
[2017-08-01] MEDS: Digoxin TAB* 0.125 MG PO SCH (09:11)
[2017-08-01] MEDS: Metoprolol Succinate XL TAB* 25 MG PO SCH (09:11)
[2017-08-01] MEDS: Insulin LISPRO* 1 UNITS UNIT SUBCUT SCH ×3 (09:12→16:47)
[2017-08-01] MEDS: lamoTRIgine TAB(*) 100 MG PO SCH ×2 (09:12→20:04)
[2017-08-01] MEDS: DABIGATRAN 150 MG PO SCH ×2 (09:14→20:03)
[2017-08-01 12:40] LABS: Urine Appearance Cloudy; Urine Blood 2+ (Negative); Urine Color Yellow; Urine Ketones Negative (Negative); Urine Protein 1+(30 mg/dL) (Negative); Urine Specific Gravity 1.016 (1.010-1.030); Urine Urobilinogen Negative (Negative)
[2017-08-01] MEDS ORDERED: cefTRIAXone VIAL(*) 500 MG in NS 0.9% 50 ML* 50 ML IVPB ONE (13:57)
--- NOTE | 2017-08-01 15:44 | ED ---
Teetee Wright Gabriel, scribed for Hayden Hylton MD on 07/30/17 at 1646 . Neurological HPI - HPI Summary HPI Summary: This patient is a 87 year old F BIBA to [facility] accompanied by her family s/p seizure that occurred [employer]. EMS states that the patient has a history of seizures and has had a CVA. Today her seizure lasted 15 minutes which is longer than usually with 7 minutes of tremors. During transport to the ED the patient had 2 LOCs that included an asystolic period. Prior to these each time she would appear to be about to vomit, would gasp for air then flat line. This lasted only a few seconds and after her heart rate would reach as high as 170 BPM. The patient had one episode in the ED. Currently she is nonverbal but is nodding no when asked if she is in pain. Patient lives at home where her family cares for her. After her family arrived they report her seizure lasted 7 minutes and for 8 minutes after she had very decreased responsivity. She has had intermittent nausea and abdominal pain recently. Patient complained of headache this morning and was eating lunch during onset of symptoms. She just finished Cipro on 07/25/17 for a bladder infection and her daughter believes she is currently more responsive than usual for being in a postictal state. - History of Current Complaint Chief Complaint: EDSeizure Stated Complaint: SEIZURES/ABD PAIN Time Seen by Provider: 07/30/17 16:20 Hx Obtained From: Patient, EMS Hx Last Menstrual Period: N/A Onset/Duration: Still Present Timing: Intermittent Episodes Lasting: Onset Severity: Severe Current Severity: None Seizure Severity: Severe Number of Seizures: 1 Pain Intensity: 0 Pain Scale Used: Adult Non Verbal Syncope Context: Witnessed, Loss of Consciousness: Yes - Additional Pertinent History Primary Care Physician: [id number] - Allergy/Home Medications Allergies/Adverse Reactions: Allergies Allergy/AdvReac Type Severity Reaction Status Date / Time amlodipine Allergy Unknown Verified 08/01/17 09:07 Reaction Details apricot Allergy Unknown Verified 08/01/17 09:15 Reaction Details atorvastatin Allergy Unknown Verified 08/01/17 09:07 Reaction Details azithromycin Allergy Unknown Verified 08/01/17 09:08 Reaction Details benazepril Allergy Unknown Verified 08/01/17 09:08 Reaction Details Calcium Channel Blocking Allergy Unknown Verified 08/01/17 09:09 Agent Dilt Reaction Details Calcium Channel Blocking Allergy Unknown Verified 08/01/17 09:09 Agents-Dih Reaction Details cephalexin Allergy Unknown Verified 08/01/17 09:09 Reaction Details erythromycin base Allergy Unknown Verified 08/01/17 09:10 Reaction Details hydrochlorothiazide Allergy Unknown Verified 08/01/17 09:12 Reaction Details MS Cashew Nut Oil Allergy Unknown Verified 02/17/17 19:20 [Cashew Nut Oil] Reaction Details nadolol Allergy Unknown Verified 08/01/17 09:10 Reaction Details nickel Allergy Unknown Verified 08/01/17 09:13 Reaction Details penicillin G Allergy Anaphylatic Verified 08/01/17 09:08 Shock primrose Allergy Vomiting Verified 08/01/17 09:15 ramipril Allergy Unknown Verified 08/01/17 09:13 Reaction Details valsartan Allergy Unknown Verified 08/01/17 09:13 Reaction Details walnut Allergy Unknown Verified 08/01/17 09:15 Reaction Details leeks Allergy Unknown Unknown Uncoded 02/16/16 14:22 Reaction Details Home Medications: Home Medications Dabigatran CAP(NF) [Pradaxa CAP(NF)] 150 mg PO BID 07/30/17 [History Confirmed 07/30/17] Digoxin TAB* [Lanoxin TAB*] 0.125 mg PO DAILY 07/30/17 [History Confirmed ] Furosemide TAB* [Lasix TAB*] 20 mg PO QAM 07/30/17 [History Confirmed 07/30/17] Levothyroxine TAB* [Synthroid 25 MCG TAB*] 25 mcg PO DAILY 07/30/17 [History Confirmed 07/30/17] Metoprolol Succinate [Metoprolol Succinate ER] 25 mg PO DAILY 07/30/17 [History Confirmed 07/30/17] lamoTRIgine TAB(*) [Lamictal TAB(*)] 50 mg PO BID 07/30/17 [History Confirmed ] metFORMIN* [Glucophage 500 MG TAB *] 500 mg PO BID 07/30/17 [History Confirmed 07/30/17] PMH/Surg Hx/FS Hx/Imm Hx Endocrine/Hematology History: Reports: Hx Anticoagulant Therapy - coumadin, Hx Diabetes, Hx Thyroid Disease - hypothyroid Cardiovascular History: Reports: Hx Hypertension, Other Cardiovascular Problems/ Disorders - ATRIAL FIBRILATION Denies: Hx Congestive Heart Failure, Hx Pacemaker/ICD Respiratory History: Denies: Hx Asthma, Hx Chronic Obstructive Pulmonary Disease (COPD) History: Reports: Hx Kidney Stones, Other Problems/Disorders - FREQUENT UTI'S Denies: Hx Renal Disease Musculoskeletal History: Reports: Hx Back Problems - BACK PAIN, Other Musculoskeletal History - CONTRACTURED LEFT ARM AND LEFT LEG WEAKNESS Denies: Hx Arthritis, Hx Osteoporosis Sensory History: Reports: Hx Cataracts - BILATERAL, Hx Contacts or Glasses Denies: Hx Hearing Aid Opthamlomology History: Reports: Hx Cataracts - BILATERAL, Hx Contacts or Glasses Neurological History: Reports: Hx Dementia, Hx Seizures, Hx Transient Ischemic Attacks (TIA) - 6 years ago. 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 Denies: Hx Developmental Delay Psychiatric History: Denies: Hx Panic Disorder, Hx Substance Abuse - Surgical History Surgery Procedure, Year, and Place: CATARACTS; HYSTERECTOMY; VARICOSE VEINS; CARDIAC ABLATION Infectious Disease History: No Infectious Disease History: Denies: Hx Clostridium Difficile, Hx Hepatitis, Hx Human Immunodeficiency Virus (HIV), Hx Shingles, Hx Tuberculosis, Traveled Outside the [place] in Last 30 Days - Family History Known Family History: Positive: Unknown - Pt has dementia - Social History Alcohol Use: None Hx Substance Use: No Substance Use Type: Reports: None Hx Tobacco Use: No Smoking Status (MU): Never Smoked Tobacco Review of Systems All Other Systems Reviewed And Are Negative: No Physical Exam - Summary Physical Exam Summary: Appearance: The patient is well-nourished in no acute distress and in no acute pain. Skin: The skin is warm and dry and skin color reflects adequate perfusion. HEENT: The head is normocephalic and atraumatic. The pupils are equal and reactive. The conjunctivae are clear and without drainage. Nares are patent and without drainage. Mouth reveals moist mucous membranes and the throat is without erythema and exudate. The external ears are intact. The ear canals are patent and without drainage. The tympanic membranes are intact. Neck: the neck is supple with full range of motion and non-tender. There are no carotid bruits. There is no neck vein distension. Respiratory: Chest is non-tender. Lungs are clear to auscultation and breath sounds are symmetrical and equal. Cardiovascular: Heart is irregular she has been bradycardic and tachycardic There is no murmur or rub auscultated. There is no peripheral edema and pulses are symmetrical and equal. Abdomen: The abdomen is soft and non-tender. There are normal bowel sounds heard in all four quadrants and there is no organomegaly palpated. Musculoskeletal: There is no back tenderness noted. Extremities are non-tender with full range of motion. There is good capillary refill. There is no peripheral edema or calf tenderness elicited. Neurological: Patient is alert. The patient has symmetrical motor strength in all four extremities. Cranial nerves are grossly intact. Deep tendon reflexes are symmetrical and equal in all four extremities. Psychiatric: The patient is answering questions intermittently Triage Information Reviewed: Yes Vital Signs On Initial Exam: Initial Vitals Temp Pulse Resp BP Pulse Ox 97 F 80 23 177/63 95 07/30/17 16:12 07/30/17 16:12 07/30/17 16:12 07/30/17 16:12 07/30/17 16:12 Vital Signs Reviewed: Yes Diagnostics - Vital Signs Vital Signs Temp Pulse Resp BP Pulse Ox 07/30/17 16:12 97 F 80 23 177/63 95 - Laboratory Lab Results: Lab Results 07/30/17 07/30/17 07/30/17 Range/Units 17:04 17:04 17:04 WBC 9.5 (3.5-10.8) 10^3/ul RBC 3.90 L (4.0-5.4) 10^6/ul Hgb 12.8 (12.0-16.0) g/dl Hct 38 (35-47) % MCV 98 H (80-97) fL MCH 33 H (27-31) pg MCHC 34 (31-36) g/dl RDW 14 (10.5-15) % Plt Count 199 (150-450) 10^3/ul MPV 9 (7.4-10.4) um3 Neut % (Auto) 88.3 H (38-83) % Lymph % (Auto) 7.3 L (25-47) % [place] % (Auto) 3.5 (1-9) % Eos % (Auto) 0.4 (0-6) % Baso % (Auto) 0.5 (0-2) % Absolute Neuts (auto) 8.4 H (1.5-7.7) 10^3/ul Absolute Lymphs (auto) 0.7 L (1.0-4.8) 10^3/ul Absolute Monos (auto) 0.3 (0-0.8) 10^3/ul Absolute Eos (auto) 0 (0-0.6) 10^3/ul Absolute Basos (auto) 0 (0-0.2) 10^3/ul Absolute Nucleated RBC 0 10^3/ul Nucleated RBC % 0 INR (Anticoag Therapy) (0.77-1.02) Sodium 139 (133-145) mmol/L Potassium TNP Chloride 112 H (101-111) mmol/L Carbon Dioxide 19 L (22-32) mmol/L Anion Gap 8 (2-11) mmol/L BUN 18 (6-24) mg/dL Creatinine 0.51 (0.51-0.95) mg/dL Est GFR ( Amer) 146.4 (>60) Est GFR (Non-Af Amer) 113.8 (>60) BUN/Creatinine Ratio 35.3 H (8-20) Glucose 177 H (70-100) mg/dL Lactic Acid 3.1 H* (0.5-2.0) mmol/L Calcium 5.8 L* (8.6-10.3) mg/dL Magnesium 1.3 L (1.9-2.7) mg/dL Total Bilirubin 0.40 (0.2-1.0) mg/dL AST TNP ALT 6 L (7-52) U/L Alkaline Phosphatase 43 (34-104) U/L Troponin I 0.01 (<0.04) ng/mL B-Natriuretic Peptide ( - 100) pg/mL Total Protein 4.6 L (6.4-8.9) g/dL Albumin 2.4 L (3.2-5.2) g/dL Globulin 2.2 (2-4) g/dL Albumin/Globulin Ratio 1.1 (1-3) Prealbumin (18-38) mg/dL TSH 0.38 (0.34-5.60) mcIU/mL Urine Color Urine Appearance Urine pH (5-9) Ur Specific [place] (1.010-1.030) Urine Protein (Negative) Urine Ketones (Negative) Urine Blood (Negative) Urine Nitrate (Negative) Urine Bilirubin (Negative) Urine Urobilinogen (Negative) Ur Leukocyte Esterase (Negative) Urine WBC (Auto) (Absent) Urine RBC (Auto) (Absent) Urine Bacteria (Absent) Hyaline Casts (Absent) Urine Glucose (Negative) Urine Ascorbic Acid (Negative) Digoxin 0.7 L (0.8-2.0) ng/ml 07/30/17 07/30/17 07/30/17 Range/Units 17:04 17:04 18:20 WBC (3.5-10.8) 10^3/ul RBC (4.0-5.4) 10^6/ul Hgb (12.0-16.0) g/dl Hct (35-47) % MCV (80-97) fL MCH (27-31) pg MCHC (31-36) g/dl RDW (10.5-15) % Plt Count (150-450) 10^3/ul MPV (7.4-10.4) um3 Neut % (Auto) (38-83) % Lymph % (Auto) (25-47) % [place] % (Auto) (1-9) % Eos % (Auto) (0-6) % Baso % (Auto) (0-2) % Absolute Neuts (auto) (1.5-7.7) 10^3/ul Absolute Lymphs (auto) (1.0-4.8) 10^3/ul Absolute Monos (auto) (0-0.8) 10^3/ul Absolute Eos (auto) (0-0.6) 10^3/ul Absolute Basos (auto) (0-0.2) 10^3/ul Absolute Nucleated RBC 10^3/ul Nucleated RBC % INR (Anticoag Therapy) 1.40 H (0.77-1.02) Sodium (133-145) mmol/L Potassium 4.3 Chloride (101-111) mmol/L Carbon Dioxide (22-32) mmol/L Anion Gap (2-11) mmol/L BUN (6-24) mg/dL Creatinine (0.51-0.95) mg/dL Est GFR ( Amer) (>60) Est GFR (Non-Af Amer) (>60) BUN/Creatinine Ratio (8-20) Glucose (70-100) mg/dL Lactic Acid (0.5-2.0) mmol/L Calcium (8.6-10.3) mg/dL Magnesium (1.9-2.7) mg/dL Total Bilirubin (0.2-1.0) mg/dL AST 13 ALT (7-52) U/L Alkaline Phosphatase (34-104) U/L Troponin I (<0.04) ng/mL B-Natriuretic Peptide 118 H ( - 100) pg/mL Total Protein (6.4-8.9) g/dL Albumin (3.2-5.2) g/dL Globulin (2-4) g/dL Albumin/Globulin Ratio (1-3) Prealbumin 24 (18-38) mg/dL TSH (0.34-5.60) mcIU/mL Urine Color Urine Appearance Urine pH (5-9) Ur Specific [place] (1.010-1.030) Urine Protein (Negative) Urine Ketones (Negative) Urine Blood (Negative) Urine Nitrate (Negative) Urine Bilirubin (Negative) Urine Urobilinogen (Negative) Ur Leukocyte Esterase (Negative) Urine WBC (Auto) (Absent) Urine RBC (Auto) (Absent) Urine Bacteria (Absent) Hyaline Casts (Absent) Urine Glucose (Negative) Urine Ascorbic Acid (Negative) Digoxin (0.8-2.0) ng/ml 07/30/17 Range/Units 19:20 WBC (3.5-10.8) 10^3/ul RBC (4.0-5.4) 10^6/ul Hgb (12.0-16.0) g/dl Hct (35-47) % MCV (80-97) fL MCH (27-31) pg MCHC (31-36) g/dl RDW (10.5-15) % Plt Count (150-450) 10^3/ul MPV (7.4-10.4) um3 Neut % (Auto) (38-83) % Lymph % (Auto) (25-47) % [place] % (Auto) (1-9) % Eos % (Auto) (0-6) % Baso % (Auto) (0-2) % Absolute Neuts (auto) (1.5-7.7) 10^3/ul Absolute Lymphs (auto) (1.0-4.8) 10^3/ul Absolute Monos (auto) (0-0.8) 10^3/ul Absolute Eos (auto) (0-0.6) 10^3/ul Absolute Basos (auto) (0-0.2) 10^3/ul Absolute Nucleated RBC 10^3/ul Nucleated RBC % INR (Anticoag Therapy) (0.77-1.02) Sodium (133-145) mmol/L Potassium Chloride (101-111) mmol/L Carbon Dioxide (22-32) mmol/L Anion Gap (2-11) mmol/L BUN (6-24) mg/dL Creatinine (0.51-0.95) mg/dL Est GFR ( Amer) (>60) Est GFR (Non-Af Amer) (>60) BUN/Creatinine Ratio (8-20) Glucose (70-100) mg/dL Lactic Acid (0.5-2.0) mmol/L Calcium (8.6-10.3) mg/dL Magnesium (1.9-2.7) mg/dL Total Bilirubin (0.2-1.0) mg/dL AST ALT (7-52) U/L Alkaline Phosphatase (34-104) U/L Troponin I (<0.04) ng/mL B-Natriuretic Peptide ( - 100) pg/mL Total Protein (6.4-8.9) g/dL Albumin (3.2-5.2) g/dL Globulin (2-4) g/dL Albumin/Globulin Ratio (1-3) Prealbumin (18-38) mg/dL TSH (0.34-5.60) mcIU/mL Urine Color Yellow Urine Appearance Clear Urine pH 5.0 (5-9) Ur Specific [place] 1.011 (1.010-1.030) Urine Protein Negative (Negative) Urine Ketones 1+ H (Negative) Urine Blood 1+ H (Negative) Urine Nitrate Positive H (Negative) Urine Bilirubin Negative (Negative) Urine Urobilinogen Negative (Negative) Ur Leukocyte Esterase 1+ H (Negative) Urine WBC (Auto) 2+(11-20/hpf) H (Absent) Urine RBC (Auto) 3+(>10/hpf) H (Absent) Urine Bacteria 3+ H (Absent) Hyaline Casts Present H (Absent) Urine Glucose 2+(150 mg/dl) H (Negative) Urine Ascorbic Acid * H (Negative) Digoxin (0.8-2.0) ng/ml Result Diagrams: 08/01/17 06:37 08/01/17 06:37 Lab Statement: Any lab studies that have been ordered have been reviewed, and results considered in the medical decision making process. - EKG 1628 Cardiac Rate: Tachycardia EKG Rhythm: Atrial Fibrillation - at 119 BPM EKG Interpretation: non specific ST depression infralaterally, afib, controlled response Course/Dx - Course Course Of Treatment: It is unclear to me whether Ms. Tabor had an atypical seizure today or syncope with seizure-like activity. She clearly had a bradydysrhythmia on the monitor which may have been vagal. I have asked the hospitalist to consult on her. - Diagnoses Provider Diagnoses: Seizure, Syncope - Physician Notifications Discussed Care Of Patient With: Beckie Evangelista Time Discussed With Above Provider: 18:51 Instructed by Provider To: Admit As Inpatient Discharge - Discharge Plan Condition: Improved Disposition: ADMITTED TO [facility] Consult Consult: 1834 We discussed patient care with Dr. Amato and they recommended to admit the patient. She will come assess them in the morning. The documentation as recorded by the Teetee ring Gabriel accurately reflects the service I personally performed and the decisions made by me, Hayden Hylton MD.
--- NOTE | 2017-08-01 23:53 | DS ---
CC: Dr. Goldstein; Dr. Dumont * DISCHARGE SUMMARY: DATE OF ADMISSION: 07/30/17 DATE OF DISCHARGE: 08/01/17 PRIMARY CARE PROVIDER: Dr. Goldstein. DISCHARGE DIAGNOSES: 1. Prolonged seizure with subsequent vagal episode after retching and sinus pauses due to vagal episode and the patient with history of seizure disorder. 2. Hypokalemia and hypomagnesemia that was replaced. 3. The patient was initially treated for questionable urinary tract infection, which likely was Olmedo colonization only. After Olmedo was exchanged, her urinalysis shows no bacteria, but the cultures are still pending at the time of dictation. SECONDARY DIAGNOSES: 1. History of seizure disorder. 2. 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 3. Diabetes. 4. Atrial fibrillation, on anticoagulation with Pradaxa. 5. Hypertension. 6. Indwelling Olmedo. 7. Dementia. 8. Status post cholecystectomy. 9. History of cardiac ablation. 10. Ureteral stenting in the past. MEDICATIONS AT DISCHARGE: Unchanged from admission and includes: 1. Metoprolol ER 12.5 mg b.i.d. 2. Synthroid 25 mcg daily. 3. Digoxin 125 mcg daily. 4. Lamotrigine ER 50 mg b.i.d. 5. Pradaxa 150 mg b.i.d. 6. Lasix 20 mg daily. 7. Metformin 500 mg b.i.d. 8. Cefdinir 300 mg p.o. b.i.d. for 3 days total. LABORATORY DATA AND STUDIES PERFORMED DURING THE HOSPITAL STAY: Included: On 08/01/17, white blood cell count of 6.2, hemoglobin of 13.5, hematocrit of 40, and platelets of 218. Sodium was 139, potassium 4.0, chloride 106, carbon dioxide 26, BUN 21, creatinine 0.77. Magnesium was 1.9 at the time of discharge. Urinalysis after Olmedo was exchanged, no cloudy urine with +2 blood , +3 leukocyte esterase, absent bacteria. Digoxin level at admission was 0.7. Brain CT at admission showed limited study. "Large amount of encephalomalacia involving the right frontoparietal and temporal lobes. No evidence of acute findings." The patient's abdomen x-ray, impression: "No evidence of obstruction." Microbiology studies of the official read was negative to date. After I discussed the urinalysis and urine culture findings with the microbiologist, it was noted that the patient has at least 3 or 4 different bacteria of significant number of colonies growing, 2 of them are Gram negative. Repeat blood cultures were obtained after Olmedo was exchanged. HOSPITALIZATION COURSE: Charline Tabor is an 87-year-old female with history of left-sided hemiparesis due to ischemic CVA with subsequent seizures. The patient also has dementia and indwelling Olmedo in place. She presented to the hospital after prolonged seizure. Subsequently, she developed retching and had vagal episode when she had sinus pauses. Due to that, she was placed on admission into the intensive care unit. Her digoxin and metoprolol were held for less than 24 hours and her bradycardia with sinus pauses did not recur. The patient was treated supportively for a seizure because the family was not interested in further titration of her antiseizure medications or modifications of such. The patient's initial urinalysis was abnormal and the patient was treated with ceftriaxone. At discharge, the patient is going to be continued with cefdinir for another 3 days to complete a 5-day treatment of possible UTI. Once again, the patient's Olmedo was exchanged during the hospital stay and repeat urine cultures are pending at the time of dictation. 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 She is recommended to follow up with his primary care provider in approximately 4 to 7 days and her urologist, Dr. Connolly in 1 to 2 weeks. Please also note that her Olmedo was exchanged during the hospital stay. PHYSICAL EXAMINATION AT THE TIME OF DISCHARGE: Vital Signs: Blood pressure of 156/66, heart rate of 97 and irregular, respiratory rate 18, oxygen saturation 95% on room air, temperature 98.2. General: The patient is a very pleasant 87- year- old female who is in no acute distress. The patient is oriented to self only. HEENT: Head: Atraumatic, normocephalic. Eyes: Pupils equal and reactive to light and accommodation. Oropharynx clear. Mucosa moist. Neck: Supple. No JVD. No bruit bilaterally. Cardiovascular: Irregular rate and rhythm. No murmur. Respiratory: Clear to auscultation bilaterally. Abdomen: Soft, nontender. Bowel sounds are present in all 4 quadrants. Extremities: There is trace bilateral pedal edema. Pulses are +2 bilaterally. There is no clubbing or cyanosis. Neuro Evaluation: The patient's left arm is contracted. Left leg is at 4/5. Speech is clear at baseline. Please also note that during the patient's hospital stay, initially she was noted to have hypomagnesemia and hypocalcemia, which was replaced and her electrolyte abnormality did not continue after the initial IV placement. Please note that this is a short summary of the patient's hospital stay. Please refer to further medical records for details. TIME SPENT: Approximately 40 minutes was spent on the patient's discharge. [id number]/[facility] #: [id number] MTDD
[2017-08-02] MEDS ORDERED: LORazepam INJ* 2 MG/ML 1 ML VIAL IV PRN (00:25)
[2017-08-02] MEDS: Levothyroxine TAB* 25 MCG TAB PO SCH (05:00)
[2017-08-02] MEDS: Insulin LISPRO* 1 UNITS UNIT SUBCUT SCH ×3 (08:49→17:11)
[2017-08-02] MEDS ORDERED: Haloperidol INJ IV/IM* 5 MG/ML AMP IV SLOW PU PRN (10:41)
[2017-08-02] MEDS: Metoprolol Succinate XL TAB* 25 MG PO SCH (10:42)
[2017-08-02] MEDS: Digoxin TAB* 0.125 MG PO SCH (10:42)
[2017-08-02] MEDS: lamoTRIgine TAB(*) 100 MG PO SCH ×2 (10:42→20:03)
[2017-08-02] MEDS: DABIGATRAN 150 MG PO SCH ×2 (10:42→20:03)
[2017-08-02] MEDS: cefTRIAXone(*) 1 GM in NS 0.9% 50 ML* 50 ML IVPB SCH (14:32)
--- NOTE | 2017-08-02 17:55 | PN ---
Subjective Date of Service: 08/02/17 Interval History: pt got agitated last night and received Ativan, now pleasant and cooperative, no complains Objective Active Medications: Dabigatran (Pradaxa Cap(Nf)) 150 mg PO BID [facility] Last Admin: 08/02/17 10:42 Dose: Not Given Dextrose (D50w Syringe 50 Ml*) 12.5 gm IV PUSH .FOR FS < 60 - SS PRN PRN Reason: FS < 60 Digoxin (Lanoxin Tab*) 0.125 mg PO DAILY [facility] Last Admin: 08/02/17 10:42 Dose: Not Given Haloperidol Lactate (Haldol Inj Iv/Im*) 1 mg IV SLOW PU Q12H PRN PRN Reason: AGITATION Hydralazine HCl (Apresoline Iv*) 10 mg IV SLOW PU Q4H PRN PRN Reason: SBP > 175 Last Admin: 08/01/17 19:59 Dose: 10 mg Ceftriaxone Sodium 1 gm/ (Sodium Chloride) 50 mls @ 200 mls/hr IVPB Q24H [facility] Last Admin: 08/02/17 14:32 Dose: 200 mls/hr Insulin Human Lispro (Humalog*) 0 units SUBCUT AC [facility] PRN Reason: Protocol Last Admin: 08/02/17 17:11 Dose: 1 unit Lamotrigine (Lamictal Tab(*)) 50 mg PO BID [facility] Last Admin: 08/02/17 10:42 Dose: Not Given Levothyroxine Sodium (Synthroid Tab*) 25 mcg PO DAILY@0600 [facility] Last Admin: 08/02/17 05:00 Dose: 25 mcg Metoprolol Succinate (Toprol Xl Tab*) 25 mg PO DAILY [facility] Last Admin: 08/02/17 10:42 Dose: Not Given Morphine Sulfate (Morphine Inj (Syringe)*) 2 mg IV Q4H PRN PRN Reason: PAIN Ondansetron HCl (Zofran Inj*) 4 mg IV Q4H PRN PRN Reason: NAUSEA/VOMITING Vital Signs - 8 hr 08/02/17 08/02/17 12:01 15:31 Temperature 97.1 F 97.1 F Pulse Rate 82 87 Respiratory 16 16 Rate Blood Pressure 124/50 145/48 (mmHg) O2 Sat by Pulse 95 97 Oximetry Oxygen Devices in Use Now: None Appearance: 87 yo F in NAD, AAOx1 Eyes: No Scleral Icterus, PERRLA Ears/Nose/Mouth/Throat: NL Teeth, Lips, Gums, Mucous Membranes Moist Neck: NL Appearance and Movements; NL JVP, Trachea Midline Respiratory: Symmetrical Chest Expansion and Respiratory Effort, Clear to Auscultation Cardiovascular: NL Sounds; No Murmurs; No JVD, RRR Abdominal: NL Sounds; No Tenderness; No Distention Lymphatic: No Cervical Adenopathy Extremities: No Clubbing, Cyanosis, - - trace pedal edema b/l Skin: No Nodules or Sclerosis Neurological: - - left facial droop, left arm contracted, left leg at 4/5, speech clear Result Diagrams: 08/01/17 06:37 08/01/17 06:37 Additional Lab and Data: Lab Results 07/30/17 07/30/17 07/30/17 Range/Units 17:04 17:04 17:04 WBC 9.5 (3.5-10.8) 10^3/ul RBC 3.90 L (4.0-5.4) 10^6/ul Hgb 12.8 (12.0-16.0) g/dl Hct 38 (35-47) % MCV 98 H (80-97) fL MCH 33 H (27-31) pg MCHC 34 (31-36) g/dl RDW 14 (10.5-15) % Plt Count 199 (150-450) 10^3/ul MPV 9 (7.4-10.4) um3 Neut % (Auto) 88.3 H (38-83) % Lymph % (Auto) 7.3 L (25-47) % [place] % (Auto) 3.5 (1-9) % Eos % (Auto) 0.4 (0-6) % Baso % (Auto) 0.5 (0-2) % Absolute Neuts (auto) 8.4 H (1.5-7.7) 10^3/ul Absolute Lymphs (auto) 0.7 L (1.0-4.8) 10^3/ul Absolute Monos (auto) 0.3 (0-0.8) 10^3/ul Absolute Eos (auto) 0 (0-0.6) 10^3/ul Absolute Basos (auto) 0 (0-0.2) 10^3/ul Absolute Nucleated RBC 0 10^3/ul Nucleated RBC % 0 INR (Anticoag Therapy) (0.77-1.02) Sodium 139 (133-145) mmol/L Potassium TNP Chloride 112 H (101-111) mmol/L Carbon Dioxide 19 L (22-32) mmol/L Anion Gap 8 (2-11) mmol/L BUN 18 (6-24) mg/dL Creatinine 0.51 (0.51-0.95) mg/dL Est GFR ( Amer) 146.4 (>60) Est GFR (Non-Af Amer) 113.8 (>60) BUN/Creatinine Ratio 35.3 H (8-20) Glucose 177 H (70-100) mg/dL Lactic Acid 3.1 H* (0.5-2.0) mmol/L Calcium 5.8 L* (8.6-10.3) mg/dL Magnesium 1.3 L (1.9-2.7) mg/dL Total Bilirubin 0.40 (0.2-1.0) mg/dL AST TNP ALT 6 L (7-52) U/L Alkaline Phosphatase 43 (34-104) U/L Troponin I 0.01 (<0.04) ng/mL B-Natriuretic Peptide ( - 100) pg/mL Total Protein 4.6 L (6.4-8.9) g/dL Albumin 2.4 L (3.2-5.2) g/dL Globulin 2.2 (2-4) g/dL Albumin/Globulin Ratio 1.1 (1-3) Prealbumin (18-38) mg/dL TSH 0.38 (0.34-5.60) mcIU/mL Urine Color Urine Appearance Urine pH (5-9) Ur Specific [place] (1.010-1.030) Urine Protein (Negative) Urine Ketones (Negative) Urine Blood (Negative) Urine Nitrate (Negative) Urine Bilirubin (Negative) Urine Urobilinogen (Negative) Ur Leukocyte Esterase (Negative) Urine WBC (Auto) (Absent) Urine RBC (Auto) (Absent) Urine Bacteria (Absent) Hyaline Casts (Absent) Urine Glucose (Negative) Urine Ascorbic Acid (Negative) Digoxin 0.7 L (0.8-2.0) ng/ml 07/30/17 07/30/17 07/30/17 Range/Units 17:04 17:04 18:20 WBC (3.5-10.8) 10^3/ul RBC (4.0-5.4) 10^6/ul Hgb (12.0-16.0) g/dl Hct (35-47) % MCV (80-97) fL MCH (27-31) pg MCHC (31-36) g/dl RDW (10.5-15) % Plt Count (150-450) 10^3/ul MPV (7.4-10.4) um3 Neut % (Auto) (38-83) % Lymph % (Auto) (25-47) % [place] % (Auto) (1-9) % Eos % (Auto) (0-6) % Baso % (Auto) (0-2) % Absolute Neuts (auto) (1.5-7.7) 10^3/ul Absolute Lymphs (auto) (1.0-4.8) 10^3/ul Absolute Monos (auto) (0-0.8) 10^3/ul Absolute Eos (auto) (0-0.6) 10^3/ul Absolute Basos (auto) (0-0.2) 10^3/ul Absolute Nucleated RBC 10^3/ul Nucleated RBC % INR (Anticoag Therapy) 1.40 H (0.77-1.02) Sodium (133-145) mmol/L Potassium 4.3 Chloride (101-111) mmol/L Carbon Dioxide (22-32) mmol/L Anion Gap (2-11) mmol/L BUN (6-24) mg/dL Creatinine (0.51-0.95) mg/dL Est GFR ( Amer) (>60) Est GFR (Non-Af Amer) (>60) BUN/Creatinine Ratio (8-20) Glucose (70-100) mg/dL Lactic Acid (0.5-2.0) mmol/L Calcium (8.6-10.3) mg/dL Magnesium (1.9-2.7) mg/dL Total Bilirubin (0.2-1.0) mg/dL AST 13 ALT (7-52) U/L Alkaline Phosphatase (34-104) U/L Troponin I (<0.04) ng/mL B-Natriuretic Peptide 118 H ( - 100) pg/mL Total Protein (6.4-8.9) g/dL Albumin (3.2-5.2) g/dL Globulin (2-4) g/dL Albumin/Globulin Ratio (1-3) Prealbumin 24 (18-38) mg/dL TSH (0.34-5.60) mcIU/mL Urine Color Urine Appearance Urine pH (5-9) Ur Specific [place] (1.010-1.030) Urine Protein (Negative) Urine Ketones (Negative) Urine Blood (Negative) Urine Nitrate (Negative) Urine Bilirubin (Negative) Urine Urobilinogen (Negative) Ur Leukocyte Esterase (Negative) Urine WBC (Auto) (Absent) Urine RBC (Auto) (Absent) Urine Bacteria (Absent) Hyaline Casts (Absent) Urine Glucose (Negative) Urine Ascorbic Acid (Negative) Digoxin (0.8-2.0) ng/ml 07/30/17 Range/Units 19:20 WBC (3.5-10.8) 10^3/ul RBC (4.0-5.4) 10^6/ul Hgb (12.0-16.0) g/dl Hct (35-47) % MCV (80-97) fL MCH (27-31) pg MCHC (31-36) g/dl RDW (10.5-15) % Plt Count (150-450) 10^3/ul MPV (7.4-10.4) um3 Neut % (Auto) (38-83) % Lymph % (Auto) (25-47) % [place] % (Auto) (1-9) % Eos % (Auto) (0-6) % Baso % (Auto) (0-2) % Absolute Neuts (auto) (1.5-7.7) 10^3/ul Absolute Lymphs (auto) (1.0-4.8) 10^3/ul Absolute Monos (auto) (0-0.8) 10^3/ul Absolute Eos (auto) (0-0.6) 10^3/ul Absolute Basos (auto) (0-0.2) 10^3/ul Absolute Nucleated RBC 10^3/ul Nucleated RBC % INR (Anticoag Therapy) (0.77-1.02) Sodium (133-145) mmol/L Potassium Chloride (101-111) mmol/L Carbon Dioxide (22-32) mmol/L Anion Gap (2-11) mmol/L BUN (6-24) mg/dL Creatinine (0.51-0.95) mg/dL Est GFR ( Amer) (>60) Est GFR (Non-Af Amer) (>60) BUN/Creatinine Ratio (8-20) Glucose (70-100) mg/dL Lactic Acid (0.5-2.0) mmol/L Calcium (8.6-10.3) mg/dL Magnesium (1.9-2.7) mg/dL Total Bilirubin (0.2-1.0) mg/dL AST ALT (7-52) U/L Alkaline Phosphatase (34-104) U/L Troponin I (<0.04) ng/mL B-Natriuretic Peptide ( - 100) pg/mL Total Protein (6.4-8.9) g/dL Albumin (3.2-5.2) g/dL Globulin (2-4) g/dL Albumin/Globulin Ratio (1-3) Prealbumin (18-38) mg/dL TSH (0.34-5.60) mcIU/mL Urine Color Yellow Urine Appearance Clear Urine pH 5.0 (5-9) Ur Specific [place] 1.011 (1.010-1.030) Urine Protein Negative (Negative) Urine Ketones 1+ H (Negative) Urine Blood 1+ H (Negative) Urine Nitrate Positive H (Negative) Urine Bilirubin Negative (Negative) Urine Urobilinogen Negative (Negative) Ur Leukocyte Esterase 1+ H (Negative) Urine WBC (Auto) 2+(11-20/hpf) H (Absent) Urine RBC (Auto) 3+(>10/hpf) H (Absent) Urine Bacteria 3+ H (Absent) Hyaline Casts Present H (Absent) Urine Glucose 2+(150 mg/dl) H (Negative) Urine Ascorbic Acid * H (Negative) Digoxin (0.8-2.0) ng/ml Microbiology and Other Data: Microbiology 08/01/17 12:00 Urine Culture - Final Urine No Growth (<1,000 CFU/mL) Assess/Plan/Problems-Billing Assessment: Mrs. Tabor is an 82yo F with PMH of Atrial fibrilation on Pradaxa, CVA with residual left hemiparesis, HTN, type 2 DM, frequent UTIs, seizure disorder, dementia admitted after a prolonged seizure and sinus pauses when retching post seizure: - Patient Problems (1) Seizure disorder Comment: Per daughter seizures started in 2014, last seizure 8 mos ago. Not tolerating increase in anti-seizure medications due to lethargy and family requests no titartion of lamictal. (2) UTI (urinary tract infection) Comment: Olmedo associated, acute Was on Ceftin one week ago cont Ceftriaxone, cx positive for multiple bacteria, but repeat cx after Olmedo exchanged grew no organisms. Will cont Ceftriaxone one more day, then stop (3) Afib Comment: rate controlled, cont pradaxa. holding BB and digoxin due to sinus pauses, although they were likely associated to increased vagal tone when retching. (4) Diabetes Comment: cont ISS (5) Electrolyte abnormality Comment: hypocalcemia and hypomagnesemia-replaced (6) DVT prophylaxis Comment: pradaxa Status and Disposition: inpatient. Pt's family is appealing discharge since they require more help at home and have caregiver burnout.CM aware and assisting, pt will likely need to be placed in a facility
[2017-08-03] MEDS: Levothyroxine TAB* 25 MCG TAB PO SCH (04:55)
[2017-08-03] MEDS: Insulin LISPRO* 1 UNITS UNIT SUBCUT SCH ×3 (08:19→17:19)
[2017-08-03] MEDS: DABIGATRAN 150 MG PO SCH ×2 (08:19→20:23)
[2017-08-03] MEDS: lamoTRIgine TAB(*) 100 MG PO SCH ×2 (08:20→20:23)
[2017-08-03] MEDS: Metoprolol Succinate XL TAB* 25 MG PO SCH (08:20)
[2017-08-03] MEDS: Digoxin TAB* 0.125 MG PO SCH (08:20)
[2017-08-03] MEDS: cefTRIAXone(*) 1 GM in NS 0.9% 50 ML* 50 ML IVPB SCH (13:52)
--- NOTE | 2017-08-03 14:14 | PN ---
Subjective Date of Service: 08/03/17 Interval History: no change in pt's status. Still very forgetful, no new complaints. Objective Active Medications: Dabigatran (Pradaxa Cap(Nf)) 150 mg PO BID [facility] Last Admin: 08/03/17 08:19 Dose: 150 mg Dextrose (D50w Syringe 50 Ml*) 12.5 gm IV PUSH .FOR FS < 60 - SS PRN PRN Reason: FS < 60 Digoxin (Lanoxin Tab*) 0.125 mg PO DAILY [facility] Last Admin: 08/03/17 08:20 Dose: 0.125 mg Haloperidol Lactate (Haldol Inj Iv/Im*) 1 mg IV SLOW PU Q12H PRN PRN Reason: AGITATION Hydralazine HCl (Apresoline Iv*) 10 mg IV SLOW PU Q4H PRN PRN Reason: SBP > 175 Last Admin: 08/01/17 19:59 Dose: 10 mg Ceftriaxone Sodium 1 gm/ (Sodium Chloride) 50 mls @ 200 mls/hr IVPB Q24H [facility] Stop: 08/03/17 23:59 Last Admin: 08/03/17 13:52 Dose: 200 mls/hr Insulin Human Lispro (Humalog*) 0 units SUBCUT AC [facility] PRN Reason: Protocol Last Admin: 08/03/17 12:37 Dose: 4 unit Lamotrigine (Lamictal Tab(*)) 50 mg PO BID [facility] Last Admin: 08/03/17 08:20 Dose: 50 mg Levothyroxine Sodium (Synthroid Tab*) 25 mcg PO DAILY@0600 [facility] Last Admin: 08/03/17 04:55 Dose: 25 mcg Metoprolol Succinate (Toprol Xl Tab*) 25 mg PO DAILY [facility] Last Admin: 08/03/17 08:20 Dose: 25 mg Morphine Sulfate (Morphine Inj (Syringe)*) 2 mg IV Q4H PRN PRN Reason: PAIN Ondansetron HCl (Zofran Inj*) 4 mg IV Q4H PRN PRN Reason: NAUSEA/VOMITING Vital Signs - 8 hr 08/03/17 08/03/17 08/03/17 07:32 07:41 08:20 Temperature 98.4 F Pulse Rate 81 81 Respiratory 20 16 Rate Blood Pressure 132/53 (mmHg) O2 Sat by Pulse 96 Oximetry Oxygen Devices in Use Now: None Appearance: 87 yo F in nAD, aAOx1 Eyes: No Scleral Icterus, PERRLA Ears/Nose/Mouth/Throat: NL Teeth, Lips, Gums, Mucous Membranes Moist Neck: NL Appearance and Movements; NL JVP, Trachea Midline Respiratory: Symmetrical Chest Expansion and Respiratory Effort, Clear to Auscultation Cardiovascular: NL Sounds; No Murmurs; No JVD, - - irregular Abdominal: NL Sounds; No Tenderness; No Distention Lymphatic: No Cervical Adenopathy Extremities: No Clubbing, Cyanosis, - - +1 pedal edema b/l Skin: No Rash or Ulcers, No Nodules or Sclerosis Neurological: - - left facial droop, left arm contracted, left leg 4/5 Result Diagrams: 08/01/17 06:37 08/01/17 06:37 Additional Lab and Data: Lab Results 07/30/17 07/30/17 07/30/17 Range/Units 17:04 17:04 17:04 WBC 9.5 (3.5-10.8) 10^3/ul RBC 3.90 L (4.0-5.4) 10^6/ul Hgb 12.8 (12.0-16.0) g/dl Hct 38 (35-47) % MCV 98 H (80-97) fL MCH 33 H (27-31) pg MCHC 34 (31-36) g/dl RDW 14 (10.5-15) % Plt Count 199 (150-450) 10^3/ul MPV 9 (7.4-10.4) um3 Neut % (Auto) 88.3 H (38-83) % Lymph % (Auto) 7.3 L (25-47) % [place] % (Auto) 3.5 (1-9) % Eos % (Auto) 0.4 (0-6) % Baso % (Auto) 0.5 (0-2) % Absolute Neuts (auto) 8.4 H (1.5-7.7) 10^3/ul Absolute Lymphs (auto) 0.7 L (1.0-4.8) 10^3/ul Absolute Monos (auto) 0.3 (0-0.8) 10^3/ul Absolute Eos (auto) 0 (0-0.6) 10^3/ul Absolute Basos (auto) 0 (0-0.2) 10^3/ul Absolute Nucleated RBC 0 10^3/ul Nucleated RBC % 0 INR (Anticoag Therapy) (0.77-1.02) Sodium 139 (133-145) mmol/L Potassium TNP Chloride 112 H (101-111) mmol/L Carbon Dioxide 19 L (22-32) mmol/L Anion Gap 8 (2-11) mmol/L BUN 18 (6-24) mg/dL Creatinine 0.51 (0.51-0.95) mg/dL Est GFR ( Amer) 146.4 (>60) Est GFR (Non-Af Amer) 113.8 (>60) BUN/Creatinine Ratio 35.3 H (8-20) Glucose 177 H (70-100) mg/dL Lactic Acid 3.1 H* (0.5-2.0) mmol/L Calcium 5.8 L* (8.6-10.3) mg/dL Magnesium 1.3 L (1.9-2.7) mg/dL Total Bilirubin 0.40 (0.2-1.0) mg/dL AST TNP ALT 6 L (7-52) U/L Alkaline Phosphatase 43 (34-104) U/L Troponin I 0.01 (<0.04) ng/mL B-Natriuretic Peptide ( - 100) pg/mL Total Protein 4.6 L (6.4-8.9) g/dL Albumin 2.4 L (3.2-5.2) g/dL Globulin 2.2 (2-4) g/dL Albumin/Globulin Ratio 1.1 (1-3) Prealbumin (18-38) mg/dL TSH 0.38 (0.34-5.60) mcIU/mL Urine Color Urine Appearance Urine pH (5-9) Ur Specific [place] (1.010-1.030) Urine Protein (Negative) Urine Ketones (Negative) Urine Blood (Negative) Urine Nitrate (Negative) Urine Bilirubin (Negative) Urine Urobilinogen (Negative) Ur Leukocyte Esterase (Negative) Urine WBC (Auto) (Absent) Urine RBC (Auto) (Absent) Urine Bacteria (Absent) Hyaline Casts (Absent) Urine Glucose (Negative) Urine Ascorbic Acid (Negative) Digoxin 0.7 L (0.8-2.0) ng/ml 07/30/17 07/30/17 07/30/17 Range/Units 17:04 17:04 18:20 WBC (3.5-10.8) 10^3/ul RBC (4.0-5.4) 10^6/ul Hgb (12.0-16.0) g/dl Hct (35-47) % MCV (80-97) fL MCH (27-31) pg MCHC (31-36) g/dl RDW (10.5-15) % Plt Count (150-450) 10^3/ul MPV (7.4-10.4) um3 Neut % (Auto) (38-83) % Lymph % (Auto) (25-47) % [place] % (Auto) (1-9) % Eos % (Auto) (0-6) % Baso % (Auto) (0-2) % Absolute Neuts (auto) (1.5-7.7) 10^3/ul Absolute Lymphs (auto) (1.0-4.8) 10^3/ul Absolute Monos (auto) (0-0.8) 10^3/ul Absolute Eos (auto) (0-0.6) 10^3/ul Absolute Basos (auto) (0-0.2) 10^3/ul Absolute Nucleated RBC 10^3/ul Nucleated RBC % INR (Anticoag Therapy) 1.40 H (0.77-1.02) Sodium (133-145) mmol/L Potassium 4.3 Chloride (101-111) mmol/L Carbon Dioxide (22-32) mmol/L Anion Gap (2-11) mmol/L BUN (6-24) mg/dL Creatinine (0.51-0.95) mg/dL Est GFR ( Amer) (>60) Est GFR (Non-Af Amer) (>60) BUN/Creatinine Ratio (8-20) Glucose (70-100) mg/dL Lactic Acid (0.5-2.0) mmol/L Calcium (8.6-10.3) mg/dL Magnesium (1.9-2.7) mg/dL Total Bilirubin (0.2-1.0) mg/dL AST 13 ALT (7-52) U/L Alkaline Phosphatase (34-104) U/L Troponin I (<0.04) ng/mL B-Natriuretic Peptide 118 H ( - 100) pg/mL Total Protein (6.4-8.9) g/dL Albumin (3.2-5.2) g/dL Globulin (2-4) g/dL Albumin/Globulin Ratio (1-3) Prealbumin 24 (18-38) mg/dL TSH (0.34-5.60) mcIU/mL Urine Color Urine Appearance Urine pH (5-9) Ur Specific [place] (1.010-1.030) Urine Protein (Negative) Urine Ketones (Negative) Urine Blood (Negative) Urine Nitrate (Negative) Urine Bilirubin (Negative) Urine Urobilinogen (Negative) Ur Leukocyte Esterase (Negative) Urine WBC (Auto) (Absent) Urine RBC (Auto) (Absent) Urine Bacteria (Absent) Hyaline Casts (Absent) Urine Glucose (Negative) Urine Ascorbic Acid (Negative) Digoxin (0.8-2.0) ng/ml 07/30/17 Range/Units 19:20 WBC (3.5-10.8) 10^3/ul RBC (4.0-5.4) 10^6/ul Hgb (12.0-16.0) g/dl Hct (35-47) % MCV (80-97) fL MCH (27-31) pg MCHC (31-36) g/dl RDW (10.5-15) % Plt Count (150-450) 10^3/ul MPV (7.4-10.4) um3 Neut % (Auto) (38-83) % Lymph % (Auto) (25-47) % [place] % (Auto) (1-9) % Eos % (Auto) (0-6) % Baso % (Auto) (0-2) % Absolute Neuts (auto) (1.5-7.7) 10^3/ul Absolute Lymphs (auto) (1.0-4.8) 10^3/ul Absolute Monos (auto) (0-0.8) 10^3/ul Absolute Eos (auto) (0-0.6) 10^3/ul Absolute Basos (auto) (0-0.2) 10^3/ul Absolute Nucleated RBC 10^3/ul Nucleated RBC % INR (Anticoag Therapy) (0.77-1.02) Sodium (133-145) mmol/L Potassium Chloride (101-111) mmol/L Carbon Dioxide (22-32) mmol/L Anion Gap (2-11) mmol/L BUN (6-24) mg/dL Creatinine (0.51-0.95) mg/dL Est GFR ( Amer) (>60) Est GFR (Non-Af Amer) (>60) BUN/Creatinine Ratio (8-20) Glucose (70-100) mg/dL Lactic Acid (0.5-2.0) mmol/L Calcium (8.6-10.3) mg/dL Magnesium (1.9-2.7) mg/dL Total Bilirubin (0.2-1.0) mg/dL AST ALT (7-52) U/L Alkaline Phosphatase (34-104) U/L Troponin I (<0.04) ng/mL B-Natriuretic Peptide ( - 100) pg/mL Total Protein (6.4-8.9) g/dL Albumin (3.2-5.2) g/dL Globulin (2-4) g/dL Albumin/Globulin Ratio (1-3) Prealbumin (18-38) mg/dL TSH (0.34-5.60) mcIU/mL Urine Color Yellow Urine Appearance Clear Urine pH 5.0 (5-9) Ur Specific [place] 1.011 (1.010-1.030) Urine Protein Negative (Negative) Urine Ketones 1+ H (Negative) Urine Blood 1+ H (Negative) Urine Nitrate Positive H (Negative) Urine Bilirubin Negative (Negative) Urine Urobilinogen Negative (Negative) Ur Leukocyte Esterase 1+ H (Negative) Urine WBC (Auto) 2+(11-20/hpf) H (Absent) Urine RBC (Auto) 3+(>10/hpf) H (Absent) Urine Bacteria 3+ H (Absent) Hyaline Casts Present H (Absent) Urine Glucose 2+(150 mg/dl) H (Negative) Urine Ascorbic Acid * H (Negative) Digoxin (0.8-2.0) ng/ml Microbiology and Other Data: Microbiology 08/01/17 12:00 Urine Culture - Final Urine No Growth (<1,000 CFU/mL) Assess/Plan/Problems-Billing Assessment: Mrs. Tabor is an 82yo F with PMH of Atrial fibrilation on Pradaxa, CVA with residual left hemiparesis, HTN, type 2 DM, frequent UTIs, seizure disorder, dementia admitted after a prolonged seizure and sinus pauses when retching post seizure: - Patient Problems (1) Seizure disorder Comment: Per daughter seizures started in 2014, last seizure 8 mos ago. Not tolerating increase in anti-seizure medications due to lethargy and family requests no titartion of lamictal. (2) UTI (urinary tract infection) Comment: Olmedo associated, acute Was on Ceftin one week ago finished 5 days course of Ceftriaxone today. Olmedo exchanged grew no organisms. (3) Afib Comment: rate controlled, cont pradaxa. holding BB and digoxin due to sinus pauses, although they were likely associated to increased vagal tone when retching. (4) Diabetes Comment: cont ISS, restarting metformin (5) Electrolyte abnormality Comment: hypocalcemia and hypomagnesemia-replaced (6) DVT prophylaxis Comment: pradaxa Status and Disposition: inpatient. Pt's family is appealing discharge since they require more help at home and have caregiver burnout.CM aware and assisting, pt will likely need to be placed in a facility
[2017-08-03] MEDS: metFORMIN* 500 MG TAB PO SCH (20:24)
[2017-08-04] MEDS: Levothyroxine TAB* 25 MCG TAB PO SCH (06:04)
[2017-08-04 08:37] VITALS: BP 147/66
[2017-08-04] MEDS: Metoprolol Succinate XL TAB* 25 MG PO SCH (09:46)
[2017-08-04] MEDS: metFORMIN* 500 MG TAB PO SCH (09:47)
[2017-08-04] MEDS: DABIGATRAN 150 MG PO SCH (09:47)
[2017-08-04] MEDS: Digoxin TAB* 0.125 MG PO SCH (09:47)
[2017-08-04] MEDS: lamoTRIgine TAB(*) 100 MG PO SCH (09:47)
[2017-08-04] MEDS: Insulin LISPRO* 1 UNITS UNIT SUBCUT SCH ×2 (09:48→12:06)
--- NOTE | 2017-08-04 12:50 | PN ---
Subjective Date of Service: 08/04/17 Interval History: States that she wants to go home, confused to place and time. Denies chest pain or shortness of breath. Denies Abd pain, Denies N/V/D. Family History: Unchanged from Admission Social History: Unchanged from Admission Past Medical History: Unchanged from Admission Objective Active Medications: Dabigatran (Pradaxa Cap(Nf)) 150 mg PO BID [facility] Last Admin: 08/04/17 09:47 Dose: 150 mg Dextrose (D50w Syringe 50 Ml*) 12.5 gm IV PUSH .FOR FS < 60 - SS PRN PRN Reason: FS < 60 Digoxin (Lanoxin Tab*) 0.125 mg PO DAILY [facility] Last Admin: 08/04/17 09:47 Dose: 0.125 mg Haloperidol Lactate (Haldol Inj Iv/Im*) 1 mg IV SLOW PU Q12H PRN PRN Reason: AGITATION Hydralazine HCl (Apresoline Iv*) 10 mg IV SLOW PU Q4H PRN PRN Reason: SBP > 175 Last Admin: 08/01/17 19:59 Dose: 10 mg Insulin Human Lispro (Humalog*) 0 units SUBCUT AC [facility] PRN Reason: Protocol Last Admin: 08/04/17 12:06 Dose: 4 unit Lamotrigine (Lamictal Tab(*)) 50 mg PO BID [facility] Last Admin: 08/04/17 09:47 Dose: 50 mg Levothyroxine Sodium (Synthroid Tab*) 25 mcg PO DAILY@0600 [facility] Last Admin: 08/04/17 06:04 Dose: 25 mcg Metformin HCl (Glucophage*) 500 mg PO BID [facility] Last Admin: 08/04/17 09:47 Dose: 500 mg Metoprolol Succinate (Toprol Xl Tab*) 25 mg PO DAILY [facility] Last Admin: 08/04/17 09:46 Dose: 25 mg Morphine Sulfate (Morphine Inj (Syringe)*) 2 mg IV Q4H PRN PRN Reason: PAIN Ondansetron HCl (Zofran Inj*) 4 mg IV Q4H PRN PRN Reason: NAUSEA/VOMITING Vital Signs - 8 hr 08/04/17 08/04/17 07:55 08:36 Temperature 97.4 F Pulse Rate 72 Respiratory 18 16 Rate Blood Pressure 147/66 (mmHg) O2 Sat by Pulse 94 Oximetry Oxygen Devices in Use Now: None Appearance: confused, appears comfortable resting in bed. Eyes: No Scleral Icterus Ears/Nose/Mouth/Throat: Clear Oropharnyx, Mucous Membranes Moist Neck: NL Appearance and Movements; NL JVP, Trachea Midline Respiratory: Symmetrical Chest Expansion and Respiratory Effort, Clear to Auscultation Cardiovascular: NL Sounds; No Murmurs; No JVD, RRR, No Edema Abdominal: NL Sounds; No Tenderness; No Distention Extremities: No Clubbing, Cyanosis Skin: No Rash or Ulcers Neurological: NL Sensation, - - confused to place and time, left facial droop, left arm contacted, left leg with slight weakness 4/5. Nutrition: Taking PO's Result Diagrams: 08/01/17 06:37 08/01/17 06:37 Additional Lab and Data: Lab Results 07/30/17 07/30/17 07/30/17 Range/Units 17:04 17:04 17:04 WBC 9.5 (3.5-10.8) 10^3/ul RBC 3.90 L (4.0-5.4) 10^6/ul Hgb 12.8 (12.0-16.0) g/dl Hct 38 (35-47) % MCV 98 H (80-97) fL MCH 33 H (27-31) pg MCHC 34 (31-36) g/dl RDW 14 (10.5-15) % Plt Count 199 (150-450) 10^3/ul MPV 9 (7.4-10.4) um3 Neut % (Auto) 88.3 H (38-83) % Lymph % (Auto) 7.3 L (25-47) % Yates % (Auto) 3.5 (1-9) % Eos % (Auto) 0.4 (0-6) % Baso % (Auto) 0.5 (0-2) % Absolute Neuts (auto) 8.4 H (1.5-7.7) 10^3/ul Absolute Lymphs (auto) 0.7 L (1.0-4.8) 10^3/ul Absolute Monos (auto) 0.3 (0-0.8) 10^3/ul Absolute Eos (auto) 0 (0-0.6) 10^3/ul Absolute Basos (auto) 0 (0-0.2) 10^3/ul Absolute Nucleated RBC 0 10^3/ul Nucleated RBC % 0 INR (Anticoag Therapy) (0.77-1.02) Sodium 139 (133-145) mmol/L Potassium TNP Chloride 112 H (101-111) mmol/L Carbon Dioxide 19 L (22-32) mmol/L Anion Gap 8 (2-11) mmol/L BUN 18 (6-24) mg/dL Creatinine 0.51 (0.51-0.95) mg/dL Est GFR ( Amer) 146.4 (>60) Est GFR (Non-Af Amer) 113.8 (>60) BUN/Creatinine Ratio 35.3 H (8-20) Glucose 177 H (70-100) mg/dL Lactic Acid 3.1 H* (0.5-2.0) mmol/L Calcium 5.8 L* (8.6-10.3) mg/dL Magnesium 1.3 L (1.9-2.7) mg/dL Total Bilirubin 0.40 (0.2-1.0) mg/dL AST TNP ALT 6 L (7-52) U/L Alkaline Phosphatase 43 (34-104) U/L Troponin I 0.01 (<0.04) ng/mL B-Natriuretic Peptide ( - 100) pg/mL Total Protein 4.6 L (6.4-8.9) g/dL Albumin 2.4 L (3.2-5.2) g/dL Globulin 2.2 (2-4) g/dL Albumin/Globulin Ratio 1.1 (1-3) Prealbumin (18-38) mg/dL TSH 0.38 (0.34-5.60) mcIU/mL Urine Color Urine Appearance Urine pH (5-9) Ur Specific [place] (1.010-1.030) Urine Protein (Negative) Urine Ketones (Negative) Urine Blood (Negative) Urine Nitrate (Negative) Urine Bilirubin (Negative) Urine Urobilinogen (Negative) Ur Leukocyte Esterase (Negative) Urine WBC (Auto) (Absent) Urine RBC (Auto) (Absent) Urine Bacteria (Absent) Hyaline Casts (Absent) Urine Glucose (Negative) Urine Ascorbic Acid (Negative) Digoxin 0.7 L (0.8-2.0) ng/ml 01/31/18 01/31/18 01/31/18 Range/Units 17:04 17:04 18:20 WBC (3.5-10.8) 10^3/ul RBC (4.0-5.4) 10^6/ul Hgb (12.0-16.0) g/dl Hct (35-47) % MCV (80-97) fL MCH (27-31) pg MCHC (31-36) g/dl RDW (10.5-15) % Plt Count (150-450) 10^3/ul MPV (7.4-10.4) um3 Neut % (Auto) (38-83) % Lymph % (Auto) (25-47) % Yates % (Auto) (1-9) % Eos % (Auto) (0-6) % Baso % (Auto) (0-2) % Absolute Neuts (auto) (1.5-7.7) 10^3/ul Absolute Lymphs (auto) (1.0-4.8) 10^3/ul Absolute Monos (auto) (0-0.8) 10^3/ul Absolute Eos (auto) (0-0.6) 10^3/ul Absolute Basos (auto) (0-0.2) 10^3/ul Absolute Nucleated RBC 10^3/ul Nucleated RBC % INR (Anticoag Therapy) 1.40 H (0.77-1.02) Sodium (133-145) mmol/L Potassium 4.3 Chloride (101-111) mmol/L Carbon Dioxide (22-32) mmol/L Anion Gap (2-11) mmol/L BUN (6-24) mg/dL Creatinine (0.51-0.95) mg/dL Est GFR ( Amer) (>60) Est GFR (Non-Af Amer) (>60) BUN/Creatinine Ratio (8-20) Glucose (70-100) mg/dL Lactic Acid (0.5-2.0) mmol/L Calcium (8.6-10.3) mg/dL Magnesium (1.9-2.7) mg/dL Total Bilirubin (0.2-1.0) mg/dL AST 13 ALT (7-52) U/L Alkaline Phosphatase (34-104) U/L Troponin I (<0.04) ng/mL B-Natriuretic Peptide 118 H ( - 100) pg/mL Total Protein (6.4-8.9) g/dL Albumin (3.2-5.2) g/dL Globulin (2-4) g/dL Albumin/Globulin Ratio (1-3) Prealbumin 24 (18-38) mg/dL TSH (0.34-5.60) mcIU/mL Urine Color Urine Appearance Urine pH (5-9) Ur Specific [place] (1.010-1.030) Urine Protein (Negative) Urine Ketones (Negative) Urine Blood (Negative) Urine Nitrate (Negative) Urine Bilirubin (Negative) Urine Urobilinogen (Negative) Ur Leukocyte Esterase (Negative) Urine WBC (Auto) (Absent) Urine RBC (Auto) (Absent) Urine Bacteria (Absent) Hyaline Casts (Absent) Urine Glucose (Negative) Urine Ascorbic Acid (Negative) Digoxin (0.8-2.0) ng/ml 07/30/17 Range/Units 19:20 WBC (3.5-10.8) 10^3/ul RBC (4.0-5.4) 10^6/ul Hgb (12.0-16.0) g/dl Hct (35-47) % MCV (80-97) fL MCH (27-31) pg MCHC (31-36) g/dl RDW (10.5-15) % Plt Count (150-450) 10^3/ul MPV (7.4-10.4) um3 Neut % (Auto) (38-83) % Lymph % (Auto) (25-47) % Yates % (Auto) (1-9) % Eos % (Auto) (0-6) % Baso % (Auto) (0-2) % Absolute Neuts (auto) (1.5-7.7) 10^3/ul Absolute Lymphs (auto) (1.0-4.8) 10^3/ul Absolute Monos (auto) (0-0.8) 10^3/ul Absolute Eos (auto) (0-0.6) 10^3/ul Absolute Basos (auto) (0-0.2) 10^3/ul Absolute Nucleated RBC 10^3/ul Nucleated RBC % INR (Anticoag Therapy) (0.77-1.02) Sodium (133-145) mmol/L Potassium Chloride (101-111) mmol/L Carbon Dioxide (22-32) mmol/L Anion Gap (2-11) mmol/L BUN (6-24) mg/dL Creatinine (0.51-0.95) mg/dL Est GFR ( Amer) (>60) Est GFR (Non-Af Amer) (>60) BUN/Creatinine Ratio (8-20) Glucose (70-100) mg/dL Lactic Acid (0.5-2.0) mmol/L Calcium (8.6-10.3) mg/dL Magnesium (1.9-2.7) mg/dL Total Bilirubin (0.2-1.0) mg/dL AST ALT (7-52) U/L Alkaline Phosphatase (34-104) U/L Troponin I (<0.04) ng/mL B-Natriuretic Peptide ( - 100) pg/mL Total Protein (6.4-8.9) g/dL Albumin (3.2-5.2) g/dL Globulin (2-4) g/dL Albumin/Globulin Ratio (1-3) Prealbumin (18-38) mg/dL TSH (0.34-5.60) mcIU/mL Urine Color Yellow Urine Appearance Clear Urine pH 5.0 (5-9) Ur Specific [place] 1.011 (1.010-1.030) Urine Protein Negative (Negative) Urine Ketones 1+ H (Negative) Urine Blood 1+ H (Negative) Urine Nitrate Positive H (Negative) Urine Bilirubin Negative (Negative) Urine Urobilinogen Negative (Negative) Ur Leukocyte Esterase 1+ H (Negative) Urine WBC (Auto) 2+(11-20/hpf) H (Absent) Urine RBC (Auto) 3+(>10/hpf) H (Absent) Urine Bacteria 3+ H (Absent) Hyaline Casts Present H (Absent) Urine Glucose 2+(150 mg/dl) H (Negative) Urine Ascorbic Acid * H (Negative) Digoxin (0.8-2.0) ng/ml Microbiology and Other Data: Microbiology 08/01/17 12:00 Urine Culture - Final Urine No Growth (<1,000 CFU/mL) Assess/Plan/Problems-Billing Assessment: Mrs. Tabor is an 82yo F with PMH of Atrial fibrilation on Pradaxa, CVA with residual left hemiparesis, HTN, type 2 DM, frequent UTIs, seizure disorder, dementia admitted after a prolonged seizure and sinus pauses when retching post seizure: - Patient Problems (1) Seizure disorder Current Visit: Yes Status: Acute Code(s): G40.909 - EPILEPSY, UNSP, NOT INTRACTABLE, WITHOUT STATUS EPILEPTICUS SNOMED Code(s): 840075505 Comment: Per daughter seizures started in 2014, last seizure 8 mos ago. will continue on current dose of lamictal- as family has requested no titration of this medication d/t patients lethergy (2) Electrolyte abnormality Current Visit: Yes Status: Acute Code(s): E87.8 - OTH DISORDERS OF ELECTROLYTE AND FLUID BALANCE, NEC SNOMED Code(s): 415271885 Comment: hypocalcemia and hypomagnesemia-replaced (3) UTI (urinary tract infection) Current Visit: Yes Status: Acute Comment: Olmedo associated, acute Was on Ceftin one week ago finished 5 days course of Ceftriaxone today. Olmedo exchanged grew no organisms. - final culture report with no growth (4) Dementia Current Visit: No Status: Acute Code(s): F03.90 - UNSPECIFIED DEMENTIA WITHOUT BEHAVIORAL DISTURBANCE SNOMED Code(s): 77027385 (5) HTN (hypertension) Current Visit: No Status: Acute Code(s): I10 - ESSENTIAL (PRIMARY) HYPERTENSION SNOMED Code(s): 36396079 Comment: - controlled on BB (6) Afib Current Visit: No Status: Chronic Code(s): I48.91 - UNSPECIFIED ATRIAL FIBRILLATION SNOMED Code(s): 65532510 Comment: rate controlled, cont pradaxa. holding BB and digoxin due to sinus pauses, although they were likely associated to increased vagal tone when retching. (7) Diabetes Current Visit: No Status: Chronic Code(s): E11.9 - TYPE 2 DIABETES MELLITUS WITHOUT COMPLICATIONS SNOMED Code(s): 04641190 Comment: will place on previous home diabetic medications (8) Hypothyroidism Current Visit: No Status: Chronic Code(s): E03.9 - HYPOTHYROIDISM, UNSPECIFIED SNOMED Code(s): 36206580 Comment: - continue synthroid (9) DVT prophylaxis Current Visit: No Status: Acute Code(s): MXH0856 - SNOMED Code(s): 532451224 Comment: pradaxa (10) DNR (do not resuscitate) Current Visit: No Status: Chronic Status and Disposition: inpatient. Pt's family is appealing discharge since they require more help at home and have caregiver burnout.CM aware and assisting, pt will likely need to be placed in a facility Will be discharged to [facility] today
--- NOTE | 2017-08-04 14:22 | DS ---
ADDENDUM TO DISCHARGE SUMMARY FROM 08/01/2017 DATE OF ADMISSION: 07/30/2017. DATE OF DISCHARGE: 08/04/2017. ATTENDING PHYSICIAN: Gino Reed * (dictated by Andrew Garcia NP). HISTORY OF PRESENT ILLNESS: The patient is going to be discharged to [facility] instead of home as originally planned in the initial discharge summary due to the extent of her care needs and the family being unable to provide that level of care. Over the weekend there was no change in the patient 's condition. She remains stable. Originally on the discharge summary, Dr. Evangelista was waiting for urinalysis culture results. Culture from 08/01/2017 urine was no growth and that is the final report. She will not be continued on any antibiotics at this time. She has been afebrile without any symptoms. The patient is stable for discharge to [facility] today. ANDREW GARCIA NP [id number]/[facility] #: [id number]
== END 2017-08-04 14:20 | DRG 101 ==
LOC: ED 16:00 → ICU 20:14 → MEDTELE 07-31 12:54
PROVIDERS: ADMIT Pediatrics; ATTEND Internal Medicine
PROC: 0T2BX0Z Change Drainage Device in Bladder, External Approach (ICD-10-PCS; principal; 2017-08-03)
DX: G40.909 Epilepsy, unspecified, not intractable, without status epilepticus (principal); E83.42 Hypomagnesemia; I48.91 Unspecified atrial fibrillation; I49.5 Sick sinus syndrome; I69.354 Hemiplegia and hemiparesis following cerebral infarction affecting left non-dominant side; T83.518A Infection and inflammatory reaction due to other urinary catheter, initial encounter; E11.9 Type 2 diabetes mellitus without complications; E87.6 Hypokalemia; F03.90 Unspecified dementia, unspecified severity, without behavioral disturbance, psychotic disturbance, mood disturbance, and anxiety; Z66 Do not resuscitate; E03.9 Hypothyroidism, unspecified; I10 Essential (primary) hypertension; Y73.1 Therapeutic (nonsurgical) and rehabilitative gastroenterology and urology devices associated with adverse incidents; Z88.1 Allergy status to other antibiotic agents; Z88.0 Allergy status to penicillin; Z88.8 Allergy status to other drugs, medicaments and biological substances; Z91.018 Allergy to other foods; Z87.442 Personal history of urinary calculi; Z87.440 Personal history of urinary (tract) infections; Z98.42 Cataract extraction status, left eye; Z98.41 Cataract extraction status, right eye; Z90.710 Acquired absence of both cervix and uterus; Z81.8 Family history of other mental and behavioral disorders; Z99.3 Dependence on wheelchair; Y92.9 Unspecified place or not applicable; R45.1 Restlessness and agitation; Z79.01 Long term (current) use of anticoagulants; Z79.84 Long term (current) use of oral hypoglycemic drugs
CPT/HCPCS: 36415; 70450; 71046; 74018; 80048; 80053; 80162; 80175; 81003; 81015; 82330; 83605; 83735; 83880; 84134; 84443; 84484; 85025; 85027; 85610; 87077; 87086; 87186; 93005; 96374; 99285; A9270-GY; J0360; J0610; J0692; J0696; J1644; J2060; J2185; J2405; J3475; J3490

== ENCOUNTER 2018-09-22 22:18 | Emergency (ER) | payer MEDICARE, OTHER ==
--- NOTE | 2018-09-22 22:45 | ED ---
Hypertension - HPI Summary HPI Summary: Patient is an 88 y/o female brought in by EMS who presents to the ED c/o N/V. As per family, [facility] called them tonight because patients BP was dangerously high. Patient c/o N/V but denies any SOB. Family is unsure if she has diarrhea. There has been norovirus recently at the intermediate. BP 206/95, HR 119 bpm on the monitor. PMHx Afib, HTN, DM, hypothyroidism, dementia, TIA. Family notes patient is normally not completely oriented to place or time. Patient is on Pradaxa. - History of Current Complaint Chief Complaint: EDHypertension Stated Complaint: HTN PER EMS Time Seen by Provider: 09/22/18 22:39 Hx Obtained From: Family/[facility] [employer] Hx Last Menstrual Period: N/A Onset/Duration: Started Hours Ago - Today, Still Present Timing: Constant Associated Signs & Symptoms: Other: - N/V Current Medications: Other - Pradaxa - Allergies/Home Medications Allergies/Adverse Reactions: Allergies Allergy/AdvReac Type Severity Reaction Status Date / Time amlodipine Allergy Unknown Verified 08/01/17 09:07 Reaction Details apricot Allergy Unknown Verified 08/01/17 09:15 Reaction Details atorvastatin Allergy Unknown Verified 08/01/17 09:07 Reaction Details azithromycin Allergy Unknown Verified 08/01/17 09:08 Reaction Details benazepril Allergy Unknown Verified 08/01/17 09:08 Reaction Details Calcium Channel Blocking Allergy Unknown Verified 08/01/17 09:09 Agent Dilt Reaction Details Calcium Channel Blocking Allergy Unknown Verified 08/01/17 09:09 Agents-Dih Reaction Details cephalexin Allergy Unknown Verified 08/01/17 09:09 Reaction Details erythromycin base Allergy Unknown Verified 08/01/17 09:10 Reaction Details hydrochlorothiazide Allergy Unknown Verified 08/01/17 09:12 Reaction Details MS Cashew Nut Oil Allergy Unknown Verified 02/17/17 19:20 [Cashew Nut Oil] Reaction Details nadolol Allergy Unknown Verified 08/01/17 09:10 Reaction Details nickel Allergy Unknown Verified 08/01/17 09:13 Reaction Details penicillin G Allergy Anaphylatic Verified 08/01/17 09:08 Shock primrose Allergy Vomiting Verified 08/01/17 09:15 ramipril Allergy Unknown Verified 08/01/17 09:13 Reaction Details valsartan Allergy Unknown Verified 08/01/17 09:13 Reaction Details walnut Allergy Unknown Verified 08/01/17 09:15 Reaction Details leeks Allergy Unknown Unknown Uncoded 02/16/16 14:22 Reaction Details PMH/Surg Hx/FS Hx/Imm Hx Endocrine/Hematology History: Reports: Hx Anticoagulant Therapy - coumadin, Hx Diabetes, Hx Thyroid Disease - hypothyroid Cardiovascular History: Reports: Hx Atrial Fibrillation, Hx Hypertension Denies: Hx Congestive Heart Failure, Hx Pacemaker/ICD Respiratory History: Denies: Hx Asthma, Hx Chronic Obstructive Pulmonary Disease (COPD) History: Reports: Hx Kidney Stones, Other Problems/Disorders - FREQUENT UTI'S Denies: Hx Renal Disease Musculoskeletal History: Reports: Hx Back Problems - BACK PAIN, Other Musculoskeletal History - CONTRACTURED LEFT ARM AND LEFT LEG WEAKNESS Denies: Hx Arthritis, Hx Osteoporosis Sensory History: Reports: Hx Cataracts - BILATERAL, Hx Contacts or Glasses Denies: Hx Hearing Aid Opthamlomology History: Reports: Hx Cataracts - BILATERAL, Hx Contacts or Glasses Neurological History: Reports: Hx Dementia, Hx Seizures, Hx Transient Ischemic Attacks (TIA) - 6 years ago. 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 Denies: Hx Developmental Delay Psychiatric History: Denies: Hx Panic Disorder, Hx Substance Abuse - Surgical History Surgery Procedure, Year, and Place: CATARACTS; HYSTERECTOMY; VARICOSE VEINS; CARDIAC ABLATION Infectious Disease History: Unable to Obtain/Confirm Infectious Disease History: Denies: Hx Clostridium Difficile, Hx Hepatitis, Hx Human Immunodeficiency Virus (HIV), Hx Shingles, Hx Tuberculosis, Traveled Outside the [place] in Last 30 Days - Family History Known Family History: Positive: Cardiac Disease - [place], Diabetes, Other - colon CA - Social History Alcohol Use: None Hx Substance Use: No Substance Use Type: Reports: None Hx Tobacco Use: No Smoking Status (MU): Never Smoked Tobacco Review of Systems Negative: Shortness Of Breath Positive: Vomiting, Diarrhea - possible, Nausea All Other Systems Reviewed And Are Negative: Yes Physical Exam - Summary Physical Exam Summary: Appearance: well appearing, no pain distress Skin: hot, dry, reflects adequate perfusion, surgical scar on left hip, no sores on back Head/face: normal Eyes: EOMI, ED ENT: mucous membranes moist Neck: supple, non-tender Respiratory: CTA, breath sounds present Cardiovascular: tachycardic with irregular rhythm, pulses symmetrical, 2+ BLE pitting edema Abdomen: non-tender, soft Bowel Sounds: present Musculoskeletal: normal, strength/ROM intact Neuro: normal, sensory motor intact, A&Ox3 : indwelling Olmedo catheter with emelyn urine, genital area is clean and dry Triage Information Reviewed: Yes Vital Signs On Initial Exam: Initial Vitals Temp Pulse Resp BP Pulse Ox 98.5 F 83 20 195/82 93 09/22/18 22:29 09/22/18 22:29 09/22/18 22:29 09/22/18 22:29 09/22/18 22:29 Vital Signs Reviewed: Yes Diagnostics - Vital Signs Vital Signs Temp Pulse Resp BP Pulse Ox 09/22/18 22:29 98.5 F 83 20 195/82 93 - Laboratory Result Diagrams: 09/22/18 23:06 09/22/18 23:06 Lab Statement: Any lab studies that have been ordered have been reviewed, and results considered in the medical decision making process. Hypertension Course/Dx - Course Course Of Treatment: Nurse's notes reviewed. Patient with a history of A. fib presents with rapid A. fib and nausea vomiting and diarrhea. Her intermediate has been affected by norovirus. She was hydrated here and her blood pressure/ rapid heart rate was treated with diltiazem. After a bolus, her heart rate did not rebound. It was felt that perhaps she would benefit from a period of observation and the hospitalist was contacted. Dr. Dunbar evaluated the patient and felt that she could be safely discharged back to the facility. She was discharged in good condition. - Diagnoses Differential Diagnosis/HQI PQRI: Other - Gastroenteritis, sepsis syndrome, [place], pneumonia Provider Diagnoses: Gastroenteritis, Hyperglycemia, Rapid atrial fibrillation, Uncontrolled hypertension - Physician Notifications Discussed Care Of Patient With: Luis Manuel Tejeda Time Discussed With Above Provider: 23:52 Instructed by Provider To: Other - Dr. Tejeda accepts pt for admission. However at 1:19 Dr. Tejeda states that after doing a consult he does not feel she meets the admission criteria. - Critical Care Time Critical Care Time: 30-74 min - Critical care time is exclusive of separately billable procedures Discharge - Sign-Out/Discharge Documenting (check all that apply): Patient Departure - Discharge Patient Received Moderate/Deep Sedation with Procedure: No - Discharge Plan Condition: Improved Disposition: NURSING HOME FACILITY Prescriptions: Ondansetron ODT TAB* [Zofran 4 MG Odt TAB*] 4 mg PO Q6H PRN #12 tab.odt PRN Reason: Nausea Patient Education Materials: A-fib (Atrial Fibrillation) (ED), Gastroenteritis (ED), Chronic Hypertension (ED) Referrals: Olivier Goldstein MD [Primary Care Provider] - Additional Instructions: Call her doctor first thing in the morning to schedule prompt follow-up. Keep well-hydrated. Zofran as needed. Return if worse, unable to keep down fluids, severe uncontrolled blood pressure or other concerns. - Billing Disposition and Condition Condition: IMPROVED Disposition: Jail Facility - Attestation Statements Document Initiated by Justin: Yes Documenting Scribe: Jessica Bond Provider For Whom Justin is Documenting (Include Credential): Evan Dang MD Scribe Attestation: Jessica Wright, scribed for Evan Dang MD on 09/23/18 at 0307. Scribe Documentation Reviewed: Yes Provider Attestation: The documentation as recorded by the Jessica ring accurately reflects the service I personally performed and the decisions made by Evan denny MD Status of Scribe Document: Viewed
[2018-09-22] MEDS ORDERED: Ondansetron INJ* 2 MG/ML VIAL IV ONE (22:47)
[2018-09-22] MEDS ORDERED: NS 0.9% 1000 ML** 1,000 ML IV ONE ×2 (22:47→23:42)
[2018-09-22] MEDS ORDERED: Diltiazem IV* 5 MG/ML 5 ML VIAL (for loading dose/IV Push) (25 MG) IV SLOW PU ONE (22:47)
[2018-09-22 23:16] LABS: ABS Basophils 0 10^3/ul (0-0.2); ABS Eosinophils 0.1 10^3/ul (0-0.6); ABS Lymphocytes 0.4 10^3/ul (1.0-4.8); ABS Monocytes 0.2 10^3/ul (0-0.8); ABS Neutrophils 11.1 10^3/ul (1.5-7.7); ABS Nucleated RBC 0 10^3/ul; Eosinophil % 0.8 %; Hematocrit 43 % (33-41); Hemoglobin 14.3 g/dL (12.0-16.0); Mean Corpuscular HGB Conc 33 g/dL (31-36); Mean Corpuscular Hemoglobin 31 pg (27-31); Mean Corpuscular Volume 95 fL (80-97); Mean Platelet Volume 9.6 fL (7.4-10.4); Nucleated Red Blood Cells % 0; Platelet Count 240 10^3/uL (150-450); Red Blood Count 4.56 10^6 /uL (3.70-4.87); Red Cell Distribution Width 15 % (10.5-15); White Blood Count 11.8 10^3/uL (3.5-10.8)
[2018-09-22 23:21] LABS: Influenza A Molecular NEGATIVE (Negative); Influenza B Molecular NEGATIVE (Negative)
[2018-09-22 23:28] LABS: INR 1.13 (0.77-1.02)
[2018-09-22 23:31] LABS: Albumin/Globulin Ratio 1.3 (1-3); BUN/Creatinine Ratio 33.3 (8-20); Calcium 9.2 mg/dL (8.6-10.3); EGFR Non-African American 72.8 (>60); Potassium 4.4 mmol/L (3.5-5.0); Total Bilirubin 0.6 mg/dL (0.2-1.0)
[2018-09-22 23:34] LABS: Troponin I 0.01 ng/mL (<0.04)
--- NOTE | 2018-09-23 01:17 | ADMNOTE ---
Subjective Date of Service: 09/23/18 Interval History: MEDICINE CONSULTATION Requesting physician: Billie PCP: Triston Reason for consult: rotovirus, diabetes HPI: Patient is an 88 year old woman with moderate dementia who currently resides at [facility]. She was referred to ED due to elevated blood sugars, vomiting and diarrhea. Reportedly, there is an outbreak of Norovirus at this SNF. The patient cannot give any history, due to dementia. In the ED course, patient was assessed to have risk of dehydration, was given 1 liter NS. She was noted to have chronic a-fib with a new rapid ventricular response. This was treated with the above fluid and 10 mg diltiazem IV. Patient was last admitted here 07/30/18 with seizure activity. Patient has long- term seizure disorder. Changes to dose of lamotrigine were discussed, but daughters were reluctant due to past adverse reactions to anticonvulsants. During that stay patient was also bradycardic, so digoxin and metoprolol were held then restarted. 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 HCP is daughter Faina, patient is DNR/DNI Past Medical History: Findings - PMH: moderate dementia, seizure disorder, hypothyroid, type 2 diabetes, chronic a-fib, LT hemiparesis due to stroke, indwelling esteban, hypertension; PSH: AV node ablation, lap christiano, ORIF LT femur , ureter stented, vein stripping Review of Systems - Measurements Intake and Output: Intake and Output Last 24 Hours 09/20/18 09/21/18 09/22/18 09/23/18 06:59 06:59 06:59 06:59 Weight 74.843 kg - Review of Systems General Comments: poor historian Constitutional Symptoms: Negative: Weight Gain, Weight Loss Dermatology: Positive: Normal HEENT: Positive: Normal Eyes: Positive: Normal Thyroid: Positive: Normal Pulmonary: Positive: Normal Cardiology: Positive: Normal Gastroenterology: Positive: Normal Negative: Nausea, Vomiting, Diarrhea Genital - Urinary: Positive: Normal Genitourinay - Female: Positive: Menopause Musculoskeletal: Positive: Low Back Pain Endocrinology: Positive: Diabetes Mellitus Hematologic/Lymphatic: Negative: Anemia Neurology: Positive: Normal Psychiatry: Positive: Normal Objective Active Medications: Ambulatory Orders Dabigatran CAP(NF) [Pradaxa CAP(NF)] 150 mg PO BID 07/30/17 Digoxin TAB* [Lanoxin TAB*] 0.125 mg PO DAILY 07/30/17 Furosemide TAB* [Lasix TAB*] 20 mg PO QAM 07/30/17 Levothyroxine TAB* [Synthroid 25 MCG TAB*] 25 mcg PO DAILY 07/30/17 Metoprolol Succinate 25 mg PO DAILY 07/30/17 lamoTRIgine TAB(*) [Lamictal TAB(*)] 50 mg PO BID 07/30/17 metFORMIN* [Glucophage 500 MG TAB *] 500 mg PO BID 07/30/17 Vital Signs - 8 hr 09/22/18 09/22/18 09/22/18 22:29 22:31 22:32 Temperature 36.9 C Pulse Rate 83 92 115 Respiratory 20 Rate Blood Pressure 195/82 195/82 (mmHg) O2 Sat by Pulse 93 93 92 Oximetry 09/23/18 00:32 Temperature Pulse Rate 84 Respiratory 21 Rate Blood Pressure 161/82 (mmHg) O2 Sat by Pulse 95 Oximetry Oxygen Devices in Use Now: None Appearance: elderly, alert, no distress Ears/Nose/Mouth/Throat: NL Teeth, Lips, Gums Neck: NL Appearance and Movements; NL JVP Respiratory: Clear to Auscultation Cardiovascular: NL Sounds; No Murmurs; No JVD, - - irregular, no murmur, 2+ edema bilat LE Lymphatic: No Cervical Adenopathy Extremities: No Clubbing, Cyanosis Skin: No Rash or Ulcers Neurological: - - alert, oriented to self, hospital Lines/Tubes/Other Access: Clean, Dry and Intact Peripheral IV Nutrition: Taking PO's Result Diagrams: 09/22/18 23:06 09/22/18 23:06 Additional Lab and Data: Laboratory Tests 09/22/18 09/22/18 09/22/18 23:06 23:06 23:06 INR (Anticoag Therapy) 1.13 H Lactic Acid 2.4 H* AST 12 L ALT 10 Troponin I 0.01 Influenza A (Rapid) Influenza B (Rapid) 09/22/18 23:09 INR (Anticoag Therapy) Lactic Acid AST ALT Troponin I Influenza A (Rapid) Negative Influenza B (Rapid) Negative Microbiology and Other Data: Microbiology 09/22/18 22:43 Influenza Types A,B Antigen - Final Nasal Specimen received for Influenza A/B Molecular testing Assess/Plan/Problems-Billing Assessment: 88 year old woman, resident of [facility], in ED with diarrhea, suspected Norovirus, hypertension, a-fib, diabetes w/ hyperglycemia - Patient Problems (1) Afib Current Visit: No Status: Chronic Priority: Medium Code(s): I48.91 - UNSPECIFIED ATRIAL FIBRILLATION SNOMED Code(s): 32830627 Comment: -rate control quickly attained w/ fluid resucitation and IV diltiazem -Continue Pradaxa -Continue rate control w/ digoxin and metoprolol -Can return to SNF tonight (2) Type 2 diabetes mellitus Current Visit: Yes Status: Acute Priority: Medium Comment: -Sugars elevated by acute infection -Can tolerate FS from 200-300 for few days. -If persisting, would start Lantus at 0.1 unit/kg at SNF. (3) Rotaviral gastroenteritis Current Visit: Yes Status: Acute Priority: High Code(s): A08.0 - ROTAVIRAL ENTERITIS SNOMED Code(s): 464221565 Comment: -Patient appears euvolemic after IV hydration -Should have clear liquids at home, plenty of oral fluids -Isolate from other residents -Strict cleaning of all surfaces. Status and Disposition: can return to SNF tonight, no indication for admission Counseling and/or Coordination of Care Minutes: Left messages on all 3 phone contacts, no answers.
[2018-09-23 02:55] VITALS: BP 153/76
== END 2018-09-23 02:56 ==
LOC: ED 22:18
DX: K52.9 Noninfective gastroenteritis and colitis, unspecified (principal); R73.9 Hyperglycemia, unspecified; I48.91 Unspecified atrial fibrillation; I10 Essential (primary) hypertension; R11.2 Nausea with vomiting, unspecified; Z88.0 Allergy status to penicillin; Z79.01 Long term (current) use of anticoagulants; Z87.442 Personal history of urinary calculi
CPT/HCPCS: 36415; 80053; 83605; 84484; 85025; 85610; 87040; 96361; 96374; 96375; 99283; J2405